=== PATIENT | female | born 2000 | race Caucasian/White ===

== ENCOUNTER 2024-02-03 12:26 | Emergency (ER) | payer BC, OTHER ==
--- OUTSIDE RECORDS SUMMARY | 2024-02-03 12:35 | XMS REPORT | Continuity of Care Document ---
Author Name Unknown Address [address] [facility] [address] [place] [address] [facility] Address [address] [facility] [address] [place] [address] Care Team Providers Care Recruitment Director Name Role Phone Gabby Alamo Primary Care Physician [phone] CASSIE PEGUERO Attending Clinician UnavailGabby Montalvo Attending Clinician [phone], [facility] Attending Clinician Unavailable Malik Bowens NP Attending Clinician [phone] MALIK BOWENS Attending Clinician UnavailMALIK Lucas Attending Clinician Unavailab Ashley Jones Attending Clinician [phone] CRISTOPHER ROSE Attending Clinician Unavailable Cristopher Putnam Attending Clinician [phone] Unknown, Attending Attending Clinician UnavailCassie Martinez MD Attending Clinician [phone] AUGUSTO PHILIPPE Attending Clinician UnavailAUGUSTO Barahona Attending Clinician UnavailMACKENZIE Holt Attending Clinician UnavailMACKENZIE Holt Attending Clinician Unavailabl e NEDA DELAROSA Attending Clinician Unavailable Ebrahim [employer] PROJECT MANAGER, Neda Attending Clinician + Doctor Unassigned, [place] Attending Clinician U navailable GABBY KISER Attending Clinician Unavailable [facility] Attending Clinician UnavailMason Chavez MD Attending Clinician [phone] MASON FITCH Attending Clinician Unavaila MASON Lester Attending Clinician Unavaila ASHLEY Stewart Attending Clinician Unavailable Nurse, Ang Roberth Attending Clinician Unavailable Lab, Ang - Db Attending Clinician Unavailable Nurse, Dieudonne Lepe Attending Clinician Unavailable Gabby Alamo Attending Clinician [phone] Doctor Unassigned, [place] Attending Clinician U navailable Lab, Ang - Db Attending Clinician Unavailable Ashley Salcedo Attending Clinician [phone] CHETAN FLORENCE Attending Clinician Unavailable SERGIO HARPER Attending Clinician Nicolle vailable Vaccine, Ang Db Cbc Fam Attending Clinician Unav ailable Unknown, Attending Attending Clinician Unavailab odin Oh MA, Mechelle A Attending Clinician Unavailab Hina Sanchez Attending Clinician + [phone] HINA NORTON Attending Clinician Unavailable PAZ TORRES Attending Clinician Unavailable PAZ TORRES Attending Clinician Unavailable Chastity Toure PA-C Attending Clinician +-[phone] CHASTITY TOURE Attending Clinician Unavailable JAYJAY KEITA Attending Clinician Unavailable Jayjay Keita DO Attending Clinician [phone] Maria Mcadams MD Attending Clinician [phone] VALENTE TATE Attending Clinician Unavailable KRISTA SHEETS Attending Clinician Unavailable Krista Sheets MD Attending Clinician [phone] Neda Jeong Attending Clinician + [phone] MARIA LUNA III Attending Clinician Unavailmelissa Luna III, MD, James C Attending Clinician + Valente Tate MD Attending Clinician [phone] Jose Padilla Attending Clinician [phone] Ira Bernstein Attending Clinician [phone] Teresa Enriquez MD Attending Clinician [phone] HINA NORTON Admitting Clinician Unavailable Payers Payer Name Policy Type Policy Number Effective Date Expirati on Date Source GRACIA O [id number] 2017 00:00:00 Problems Condition Name Condition Details Condition Category Status Onset Date Resolution Date Last Treatment Date Treating Clinician Comments Source OMAR (obstructi ve sleep apnea) OMAR (obstructi ve sleep apnea) Disease Active 9-05 00:00: 00 [facility] COVID COVID Disease Active 7-17 00:00: 00 [facility] UTI symptoms UTI symptoms Disease Active 5-17 00:00: 00 [facility] Hematuria, unspecifie d type Hematuria, unspecifie d type Disease Active 5-17 00:00: 00 [facility] Spotting between menses Spotting between menses Disease Active 5-17 00:00: 00 [facility] Lower abdominal pain Lower abdominal pain Disease Active 5-17 00:00: 00 [facility] Wellness examinatio n Wellness examinatio n Disease Active -11 00:00: 00 [facility] Chronic migraine with aura without status migrainosu s, not intractabl e Chronic migraine with aura without status migrainosu s, not intractabl e Disease Active -11 00:00: 00 [facility] Indigestio n Indigestio n Disease Active 3-11 00:00: 00 [facility] Upper respirator y tract infection, unspecifie d type Upper respirator y tract infection, unspecifie d type Disease Active 2022-02 0-18 00:00: 00 [facility] Nail abnormalit y Nail abnormalit y Disease Active 9-11 00:00: 00 [facility] Need for vaccinatio n Need for vaccinatio n Disease Active 2021-02 00:00: 00 [facility] Anxiety and depression Anxiety and depression Disease Active 07-10 00:00: 00 [facility] Mood disorder Mood disorder Disease Active 07-10 00:00: 00 [facility] New daily persistent headache New daily persistent headache Disease Active 07-10 00:00: 00 [facility] Elevated platelet count Elevated platelet count Disease Active 04-06 00:00: 00 [facility] Nexplanon in place Nexplanon in place Disease Active 2017-02 00:00: 00 [facility] ADHD (attention deficit hyperactiv ity disorder), combined type ADHD (attention deficit hyperactiv ity disorder), combined type Disease Active 08-05 00:00: 00 [facility] Allergies, Adverse Reactions, Alerts Allergy Name Allergy Type Status Severity Reaction(s) Onset Date Inactive Date Treating Clinician Comments Source NO KNOWN ALLERGIE S Drug Class Active [facility] Social History Social Habit Start Date Stop Date Quantity Comments Source Gender identity [facility] intake 2024-01-19 00:00:00 2024-01-19 00:00:00 Current non-drinker of alcohol (finding) [facility] History of Social function 2023-10-15 00:00:00 2023-10-15 00:00:00 [facility] Alcohol intake 2023-04-28 00:00:00 2023-04-28 00:00:00 Current non-drinker of alcohol (finding) [facility] Exposure to SARS-CoV-2 (event) 2022-06-22 00:00:00 2022-07-02 14:05:00 Not sure [facility] Tobacco use and exposure 2022-01-09 00:00:00 2022-01-09 00:00:00 Smokeless tobacco non-user [facility] Sex assigned at 2002 00:00:00 2000 00:00:00 [facility] Smoking Status Start Date Stop Date Source Never smoked tobacco [facility] Medications Ordered Medication Name Filled Medication Name Start Date Stop Date Current Medication? Ordering Clinician Indication Dosage Frequency Signature (SIG) Comments Components Source LAMOTRIGINE 100 mg [facility] 2023-02 00:00: 00 Yes [id number] 1{tbl} TAKE 1 TABLET BY MOUTH EVERY MORNING [facility] hydrOXYzine 25 mg tablet 2023-02 00:00: 00 Yes [id number] 25mg Take 1 tablet by mouth every 8 (eight) hours as needed for Anxiety or Other (Insomnia) . [facility] aspirin 81 mg chewable tablet 2023-02 00:00: 00 Yes [id number] 81mg Take 1 tablet by mouth in the morning. [facility] escitalopra m oxalate 20 mg tablet 2023-02 00:00: 00 Yes [id number] 20mg Take 1 tablet by mouth in the morning. [facility] LAMOTRIGINE 100 mg [facility] 2023-02 00:00: 00 Yes [id number] 1{tbl} TAKE 1 TABLET BY MOUTH EVERY MORNING [facility] methylPREDN ISolone (MEDROL, KATRINA,) 4 mg tablets 2023-02 0 00:00: 00 01-18 00:00 :00 No [id number] Take by mouth SEE-INSTRU CTIONS. follow package directions [facility] doxycycline monohydrate 100 mg capsule 2023-02 0 00:00: 00 Yes [id number] 100mg Take 1 capsule by mouth in the morning and 1 capsule in the evening. [facility] tretinoin 0.025 % cream 2023-02 0 00:00: 00 Yes [id number] Apply to affected area(s) at bedtime. [facility] clindamycin -benzoyl peroxide (BENZACLIN PUMP) 1-5 % GlwP 2023-02 0- 00:00: 00 Yes [id number] 1{appli cation} Apply 1 Applicatio n to affected area(s) every morning. [facility] Lamotrigine 100 mg [facility] 2023-02 0- 00:00: 12-22 00:00 :00 No [id number] 1{tbl} TAKE 1 TABLET BY MOUTH EVERY MORNING [facility] HYDROXYZINE HCL ORAL 10-14 10:49: 11 Yes Take by mouth. [facility] meloxicam 7.5 mg tablet 10-14 00:00: 00 01-18 00:00 :00 No [id number] 7.5mg Take 1 tablet by mouth once daily as needed (as needed for back pain not relieved by tylenol). [facility] nirmatrelvi r-ritonavir (PAXLOVID) 300 mg (150 mg x 2)-100 mg tablet 09-02 00:00: 00 10-14 00:00 :00 No [id number] 3{tbl} Take 3 tablets by mouth in the morning and 3 tablets in the evening. [facility] bromphenira mine-pseudo ephedrine-D M (BROMFED DM) 2-30-10 mg/5 mL syrup 09-02 00:00: 00 09-13 04:59 :00 No [id number] 10mL Take 10 mL by mouth 4 (four) times daily as needed for Congestion /Allergies for up to 10 days. [facility] tuberculin ppd (TUBERSOL) injection 5 Units 08-21 13:45: 00 08-21 12:55 :27 No [id number] [facility]alate 20 mg tablet 07-15 16:05: 10 Yes 20mg Take 1 tablet by mouth in the morning. [facility] amoxicillin -clavulanat e (AUGMENTIN) 875-125 mg per tablet 07-03 00:00: 00 07-11 04:59 :00 No [id number] 1{tbl} Take 1 tablet by mouth in the morning and 1 tablet in the evening. Do all this for 7 days. [facility] citalopram 20 mg tablet 04-27 00:00: 00 Yes [id number] 20mg Take 1 tablet by mouth in the morning. [facility] TOPIRAMATE 25 mg tablet -12 00:00: 00 Yes [id number] 25mg TAKE 1 TABLET BY MOUTH EVERY DAY IN THE MORNING [facility] famotidine 20 mg tablet 03-07 00:00: 00 Yes [id number] 20mg Take 1 tablet by mouth in the morning. [facility] clindamycin (CLEOCIN T) 1 % lotion 03-07 00:00: 00 Yes [id number] Apply to area(s) 2 (two) times daily. [facility] rizatriptan (MAXALT) 10 mg tablet 03-07 00:00: 00 Yes [id number] 10mg Take 1 tablet by mouth as needed for Migraine. May repeat in 2 hours if needed, do not exceed max daily recommenda tion. [facility] topiramate 25 mg tablet 03-07 00:00: 00 03-31 00:00 :00 No [id number] 25mg Take 1 tablet by mouth in the morning. [facility] albuterol 90 mcg/actuati on inhaler 2022-02 00:00: 00 Yes [id number] 2{puff} Inhale 2 Puffs every 6 (six) hours as needed for Wheezing or Shortness of Breath. [facility] AZITHROMYCI N 250 mg tablet 2022-02 00:00: 00 Yes [id number] 500MG on day 1, then 250mg days 2-5 [facility] bromphenira mine-pseudo ephedrine-D M (BROMFED DM) 2-30-10 mg/5 mL syrup 2022-02 0-18 00:00: 00 12-15 04:59 :00 No [id number] 10mL Take 10 mL by mouth 4 (four) times daily as needed for Congestion /Allergies for up to 10 days. [facility] LAMOTRIGINE 100 mg TR24 9-26 00:00: 00 11-18 00:00 :00 No [id number] 1{tbl} TAKE 1 TABLET BY MOUTH EVERY MORNING [facility] ESCITALOPRA M OXALATE 20 mg tablet 9-26 00:00: 00 04-27 00:00 :00 No [id number] 20mg TAKE 1 TABLET BY MOUTH EVERY DAY IN THE MORNING [facility] cephALEXin (KEFLEX) 500 mg capsule 09-25 00:00: 00 10-03 04:59 :00 No [id number] 500mg Take 1 capsule by mouth in the morning and 1 capsule at noon and 1 capsule in the evening. Do all this for 7 days. [facility] Nitrofurant oin&Nit. Macrocryst 100 mg capsule 09-24 00:00: 00 09-25 00:00 :00 No [id number] 100mg Take 1 capsule by mouth in the morning and 1 capsule in the evening. Do all this for 7 days. [facility] escitalopra m oxalate (LEXAPRO) 20 mg tablet 16 00:00: 00 Yes [id number] 20mg Take 1 tablet by mouth in the morning. [facility] Lamotrigine 100 mg TR24 16 00:00: 00 Yes [id number] 100mg Take 100 mg by mouth in the morning. [facility] ESCITALOPRA M OXALATE 20 mg tablet 12 00:00: 00 07-02 00:00 :00 No [id number] TAKE 1 TABLET BY MOUTH EVERY DAY IN THE MORNING [facility] AZELASTINE 137 mcg (0.1 %) nasal spray 04-12 00:00: 00 12-04 00:00 :00 No [id number] USE 1 SPRAY IN EACH NOSTRIL IN THE MORNING AND 1 SPRAY IN THE EVENING. [facility] CETIRIZINE 10 mg tablet 04-12 00:00: 00 12-04 00:00 :00 No [id number] TAKE 1 TABLET BY MOUTH EVERY DAY IN THE MORNING [facility] FLUTICASONE PROPIONATE 50 mcg/actuati on nasal spray 04-12 00:00: 00 12-04 00:00 :00 No [id number] SPRAY 1 SPRAY INTO EACH NOSTRIL IN THE MORNING [facility] fluticasone propionate 50 mcg/actuati on nasal spray 03-27 00:00: 00 Yes [id number] SPRAY 1 SPRAY INTO EACH NOSTRIL IN THE MORNING [facility] azelastine 137 mcg (0.1 %) nasal spray 03-27 00:00: 00 Yes [id number] USE 1 SPRAY IN EACH NOSTRIL IN THE MORNING AND 1 SPRAY IN THE EVENING. [facility] CETIRIZINE 10 mg tablet 03-27 00:00: 00 Yes [id number] TAKE 1 TABLET BY MOUTH EVERY DAY IN THE MORNING [facility] triamcinolo ne acetonide (KENALOG) injection 40 mg 02-28 02:30: 00 02-28 01:25 :00 No [id number] 40mg [facility] diphenhydrA MINE (BENADRYL) 12.5 mg/5 mL solution 25 mg 02-28 02:15: 00 02-28 01:22 :00 No [id number] 25mg [facility] methylpheni date HCl (CONCERTA ORAL) 02-27 19:16: 29 02-27 00:00 :00 No Take by mouth. [facility] AZELASTINE 137 mcg (0.1 %) nasal spray 02-27 00:00: 00 03-27 00:00 :00 No [id number] USE 1 SPRAY IN EACH NOSTRIL IN THE MORNING AND 1 SPRAY IN THE EVENING. [facility] FLUTICASONE PROPIONATE 50 mcg/actuati on nasal spray 02-27 00:00: 00 03-27 00:00 :00 No [id number] SPRAY 1 SPRAY INTO EACH NOSTRIL IN THE MORNING [facility] CETIRIZINE 10 mg tablet 02-27 00:00: 00 03-27 00:00 :00 No [id number] TAKE 1 TABLET BY MOUTH EVERY DAY IN THE MORNING [facility] azelastine 137 mcg (0.1 %) nasal spray 2021-02 00:00: 00 Yes [id number] 1{spray } Use 1 Donnelly in each nostril in the morning and 1 Donnelly in the evening. Use in each nostril as directed [facility] fluticasone propionate 50 mcg/actuati on nasal spray 2021-02 00:00: 00 Yes [id number] 1{spray } Use 1 Donnelly in each nostril in the morning. [facility] cetirizine (ZYRTEC) 10 mg tablet 2021-02 00:00: 00 Yes [id number] 10mg Take 1 tablet by mouth in the morning. [facility] LAMOTRIGINE 25 mg tablet 2021-02 00:00: 00 07-02 00:00 :00 No [id number] 25MG DAILY FOR 2 WEEKS, THEN 50MG DAILY [facility] traZODone 50 mg tablet 2021-02 00:00: 00 07-02 00:00 :00 No TAKE 1/2 TO 1 TABLET BY MOUTH AT BEDTIME [facility] fluconazole (DIFLUCAN) 150 mg tablet 2021-02 00:00: 00 01-20 05:59 :00 No [id number] 150mg Take 1 tablet by mouth once now for 1 dose. [facility] phenazopyri dine (PYRIDIUM) 200 mg tablet 2021-02 00:00: 00 12-04 00:00 :00 No [id number] 200mg Take 1 tablet by mouth in the morning and 1 tablet at noon and 1 tablet in the evening. Take after meals. [facility] nitrofurant oin 100 mg capsule 2021-02 00:00: 00 02-27 00:00 :00 No [id number] 100mg Take 1 capsule by mouth in the morning and 1 capsule in the evening. [facility] lamoTRIgine (LAMICTAL) 25 mg tablet 2021-02 00:00: 00 02-01 00:00 :00 No [id number] 25mg daily for 2 weeks, then 50mg daily [facility] escitalopra m oxalate 20 mg tablet 2021-02 0-03 00:00: 00 06-28 00:00 :00 No [id number] 20mg Take 1 tablet by mouth in the morning. [facility] ESCITALOPRA M OXALATE 20 mg tablet 8- 00:00: 00 Yes [id number] TAKE 1 TABLET BY MOUTH EVERY DAY [facility] escitalopra m oxalate (LEXAPRO) 20 mg tablet 07-10 00:00: 00 10-09 04:59 :00 No [id number] 20mg Take 1 tablet by mouth daily for 90 days. [facility] busPIRone 10 mg tablet 07-10 00:00: 00 08-10 04:59 :00 No [id number] 10mg Take 1 tablet by mouth 2 (two) times daily as needed (anxiety) for up to 30 days. [facility] methylpheni date HCl (CONCERTA ORAL) - 09:31: 33 Yes Take by mouth. [facility] escitalopra m oxalate (LEXAPRO) 20 mg tablet 1-13 00:00: 00 07-10 00:00 :00 No [id number] 20mg Take 1 tablet by mouth daily. [facility] hydrOXYzine 25 mg tablet 1-05 00:00: 00 07-10 00:00 :00 No [facility] Immunizations Ordered Immunization Name Filled Immunization Name Date Status Comments Source HEP B, Adult Dosage 2023-10-15 00:00:00 Completed HEP B, Adult Dosage 2023-10-15 00:00:00 Completed HEP B, Adult Dosage 2023-10-15 00:00:00 Completed PPD (TB) 2023-09-15 00:00:00 Completed HEP B, Adult Dosage 2023-09-15 00:00:00 Completed PPD (TB) 2023-09-15 00:00:00 Completed HEP B, Adult Dosage 2023-09-15 00:00:00 Completed PPD (TB) 2023-09-15 00:00:00 Completed HEP B, Adult Dosage 2023-09-15 00:00:00 Completed PPD (TB) 2023-08-22 00:00:00 Completed PPD (TB) 2023-08-22 00:00:00 Completed PPD (TB) 2023-08-22 00:00:00 Completed SARS-COV-2 COVID 19 JUAN LUIS SUCROSE VACCINE 12+, , 0.3 ML (30 MCG), IM PFIZER (TENORIO TOP) 2023-07-04 00:00:00 Completed [facility] SARS-COV-2 COVID 19 JUAN LUIS SUCROSE VACCINE 12+, , 0.3 ML (30 MCG), IM PFIZER (TENORIO TOP) 2023-07-04 00:00:00 Completed [facility] SARS-COV-2 COVID 19 JUAN LUIS SUCROSE VACCINE 12+, [id number], 0.3 ML (30 MCG), IM PFIZER (TENORIO TOP) 2023-07-04 00:00:00 Completed [facility] Influenza Virus Vaccine Quad IM, Preserv and ABX Free 6 MO-64 YRS (FLUCELVAX) 2023-04-28 00:00:00 Completed [facility] Influenza Virus Vaccine Quad IM, Preserv and ABX Free 6 MO-64 YRS (FLUCELVAX) 2023-04-28 00:00:00 Completed [facility] Influenza Virus Vaccine Quad IM, Preserv and ABX Free 6 MO-64 YRS (FLUCELVAX) 2023-04-28 00:00:00 Completed [facility] TDAP 2022-06-19 00:00:00 Completed TDAP 2022-06-19 00:00:00 Completed TDAP 2022-06-19 00:00:00 Completed Influenza Virus Vaccine Quad IM, Preserv and ABX Free 6 MO-64 YRS (FLUCELVAX) 2022-01-09 00:00:00 Completed [facility] Influenza Virus Vaccine Quad IM, Preserv and ABX Free 6 MO-64 YRS (FLUCELVAX) 2022-01-09 00:00:00 Completed [facility] Influenza Virus Vaccine Quad IM, Preserv and ABX Free 6 MO-64 YRS (FLUCELVAX) 2022-01-09 00:00:00 Completed [facility] Influenza Virus Vaccine Quad IM, Preserv and ABX Free 6 MO-64 YRS (FLUCELVAX) 2022-01-09 00:00:00 Completed [facility] Influenza Virus Vaccine Quad IM, Preserv and ABX Free 6 MO-64 YRS 2022-01-09 00:00:00 Completed [facility] Influenza Virus Vaccine Quad IM, Preserv and ABX Free 6 MO-64 YRS 2022-01-09 00:00:00 Completed [facility] Influenza Virus Vaccine Quad IM, Preserv and ABX Free 6 MO-64 YRS 2022-01-09 00:00:00 Completed [facility] Influenza Virus Vaccine Quad IM, Preserv and ABX Free 6 MO-64 YRS 2022-01-09 00:00:00 Completed [facility] Influenza Virus Vaccine Quad IM, Preserv and ABX Free 6 MO-64 YRS 2022-01-09 00:00:00 Completed [facility] Influenza Virus Vaccine Quad IM, Preserv and ABX Free 6 MO-64 YRS 2022-01-09 00:00:00 Completed [facility] Influenza Virus Vaccine Quad IM, Preserv and ABX Free 6 MO-64 YRS 2022-01-09 00:00:00 Completed [facility] Influenza Virus Vaccine Quad IM, Preserv and ABX Free 6 MO-64 YRS 2022-01-09 00:00:00 Completed [facility] Influenza Virus Vaccine Quad IM, Preserv and ABX Free 6 MO-64 YRS 2022-01-09 00:00:00 Completed [facility] Influenza Virus Vaccine Quad IM, Preserv and ABX Free 6 MO-64 YRS 2022-01-09 00:00:00 Completed [facility] Influenza Virus Vaccine Quad IM, Preserv and ABX Free 6 MO-64 YRS 2022-01-09 00:00:00 Completed [facility] Influenza Virus Vaccine Quad IM, Preserv and ABX Free 6 MO-64 YRS 2022-01-09 00:00:00 Completed [facility] Influenza Virus Vaccine Quad IM, Preserv and ABX Free 6 MO-64 YRS 2022-01-09 00:00:00 Completed [facility] Influenza Virus Vaccine Quad IM, Preserv and ABX Free 6 MO-64 YRS 2022-01-09 00:00:00 Completed [facility] Influenza Virus Vaccine Quad IM, Preserv and ABX Free 6 MO-64 YRS 2022-01-09 00:00:00 Completed [facility] Influenza Virus Vaccine Quad IM, Preserv and ABX Free 6 MO-64 YRS 2022-01-09 00:00:00 Completed [facility] Influenza Virus Vaccine Quad IM, Preserv and ABX Free 6 MO-64 YRS 2022-01-09 00:00:00 Completed [facility] Influenza Virus Vaccine Quad IM, Preserv and ABX Free 6 MO-64 YRS 2022-01-09 00:00:00 Completed [facility] Influenza Virus Vaccine Quad IM, Preserv and ABX Free 6 MO-64 YRS 2022-01-09 00:00:00 Completed [facility] Influenza Virus Vaccine Quad IM, Preserv and ABX Free 6 MO-64 YRS 2022-01-09 00:00:00 Completed [facility] Influenza Virus Vaccine Quad IM, Preserv and ABX Free 6 MO-64 YRS 2022-01-09 00:00:00 Completed [facility] Influenza Virus Vaccine Quad IM, Preserv and ABX Free 6 MO-64 YRS 2022-01-09 00:00:00 Completed [facility] Influenza Virus Vaccine Quad IM, Preserv and ABX Free 6 MO-64 YRS (FLUCELVAX) 2022-01-09 00:00:00 Completed [facility] Meningococcal B, OMV 2021-08-23 00:00:00 Completed [facility] Meningococcal B, OMV 2021-08-23 00:00:00 Completed [facility] Meningococcal B, OMV 2021-08-23 00:00:00 Completed Meningococcal B, OMV 2021-08-23 00:00:00 Completed Meningococcal B, OMV 2021-08-23 00:00:00 Completed Meningococcal B, OMV 2021-08-23 00:00:00 Completed [facility] Meningococcal B, OMV 2021-08-23 00:00:00 Completed [facility] Meningococcal B, OMV 2021-08-23 00:00:00 Completed [facility] Meningococcal B, OMV 2021-08-23 00:00:00 Completed [facility] Meningococcal B, OMV 2021-08-23 00:00:00 Completed [facility] Meningococcal B, OMV 2021-08-23 00:00:00 Completed [facility] Meningococcal B, OMV 2021-08-23 00:00:00 Completed [facility] Meningococcal B, OMV 2021-08-23 00:00:00 Completed [facility] Meningococcal B, OMV 2021-08-23 00:00:00 Completed [facility] Meningococcal B, OMV 2021-08-23 00:00:00 Completed [facility] Meningococcal B, OMV 2021-08-23 00:00:00 Completed [facility] Meningococcal B, OMV 2021-08-23 00:00:00 Completed [facility] Meningococcal B, OMV 2021-08-23 00:00:00 Completed [facility] Meningococcal Polysaccharide (groups A, C, Y and W-135) conjugate vaccine (MCV4P) 2020-06-27 00:00:00 Completed [facility] Meningococcal B, OMV 2020-06-27 00:00:00 Completed [facility] Meningococcal Polysaccharide (groups A, C, Y and W-135) conjugate vaccine (MCV4P) 2020-06-27 00:00:00 Completed Meningococcal B, OMV 2020-06-27 00:00:00 Completed Meningococcal Polysaccharide (groups A, C, Y and W-135) conjugate vaccine (MCV4P) 2020-06-27 00:00:00 Completed Meningococcal B, OMV 2020-06-27 00:00:00 Completed Meningococcal Polysaccharide (groups A, C, Y and W-135) conjugate vaccine (MCV4P) 2020-06-27 00:00:00 Completed Meningococcal B, OMV 2020-06-27 00:00:00 Completed Meningococcal Polysaccharide (groups A, C, Y and W-135) conjugate vaccine (MCV4P) 2020-06-27 00:00:00 Completed [facility] Meningococcal B, V 2020-06-27 00:00:00 Completed [facility] Meningococcal Polysaccharide (groups A, C, Y and W-135) conjugate vaccine (MCV4P) 2020-06-27 00:00:00 Completed [facility] Meningococcal B, OMV 2020-06-27 00:00:00 Completed [facility] [facility] M[facility] Polysaccharide (groups A, C, Y and W-135) conjugate vaccine (MCV4P) 2020-06-27 00:00:00 Completed [facility] Meningococcal B, OMV 2020-06-27 00:00:00 Completed [facility] Meningococcal Polysaccharide (groups A, C, Y and W-135) conjugate vaccine (MCV4P) 2020-06-27 00:00:00 Completed [facility] Meningococcal B, OMV 2020-06-27 00:00:00 Completed [facility] Meningococcal Polysaccharide (groups A, C, Y and W-135) conjugate vaccine (MCV4P) 2020-06-27 00:00:00 Completed [facility] Meningococcal B, OMV 2020-06-27 00:00:00 Completed [facility] Meningococcal Polysaccharide (groups A, C, Y and W-135) conjugate vaccine (MCV4P) 2020-06-27 00:00:00 Completed [facility] Meningococcal B, OMV 2020-06-27 00:00:00 Completed [facility] Meningococcal Polysaccharide (groups A, C, Y and W-135) conjugate vaccine (MCV4P) 2020-06-27 00:00:00 Completed [facility] Meningococcal B, OMV 2020-06-27 00:00:00 Completed [facility] Meningococcal Polysaccharide (groups A, C, Y and W-135) conjugate vaccine (MCV4P) 2020-06-27 00:00:00 Completed [facility] Meningococcal B, OMV 2020-06-27 00:00:00 Completed [facility] Meningococcal Polysaccharide (groups A, C, Y and W-135) conjugate vaccine (MCV4P) 2020-06-27 00:00:00 Completed [facility] Meningococcal B, OMV 2020-06-27 00:00:00 Completed [facility] Meningococcal Polysaccharide (groups A, C, Y and W-135) conjugate vaccine (MCV4P) 2020-06-27 00:00:00 Completed [facility] Meningococcal B, OMV 2020-06-27 00:00:00 Completed [facility] Meningococcal Polysaccharide (groups A, C, Y and W-135) conjugate vaccine (MCV4P) 2020-06-27 00:00:00 Completed [facility] Meningococcal B, OMV 2020-06-27 00:00:00 Completed [facility] Meningococcal Polysaccharide (groups A, C, Y and W-135) conjugate vaccine (MCV4P) 2020-06-27 00:00:00 Completed [facility] Meningococcal B, OMV 2020-06-27 00:00:00 Completed [facility] Meningococcal Polysaccharide (groups A, C, Y and W-135) conjugate vaccine (MCV4P) 2020-06-27 00:00:00 Completed [facility] Meningococcal B, OMV 2020-06-27 00:00:00 Completed [facility] Meningococcal Polysaccharide (groups A, C, Y and W-135) conjugate vaccine (MCV4P) 2020-06-27 00:00:00 Completed [facility] Meningococcal B, OMV 2020-06-27 00:00:00 Completed [facility] HPV9 2016-07-26 00:00:00 Completed [facility] HPV9 2016-07-26 00:00:00 Completed HPV9 2016-07-26 00:00:00 Completed HPV9 2016-07-26 00:00:00 Completed HPV9 2016-07-26 00:00:00 Completed [facility] HPV9 2016-07-26 00:00:00 Completed [facility] HPV9 2016-07-26 00:00:00 Completed [facility] HPV9 2016-07-26 00:00:00 Completed [facility] HPV9 2016-07-26 00:00:00 Completed [facility] HPV9 2016-07-26 00:00:00 Completed [facility] HPV9 2016-07-26 00:00:00 Completed [facility] HPV9 2016-07-26 00:00:00 Completed [facility] HPV9 2016-07-26 00:00:00 Completed [facility] HPV9 2016-07-26 00:00:00 Completed [facility] HPV9 2016-07-26 00:00:00 Completed [facility] HPV9 2016-07-26 00:00:00 Completed [facility] HPV9 2016-07-26 00:00:00 Completed [facility] HPV9 2016-07-26 00:00:00 Completed [facility] TDAP 2014-07-04 00:00:00 Completed [facility] HPV 2014-07-04 00:00:00 Completed [facility] Meningococcal Polysaccharide (groups A, C, Y and W-135) conjugate vaccine (MCV4P) 2014-07-04 00:00:00 Completed [facility] HPV 2014-07-04 00:00:00 Completed Meningococcal Polysaccharide (groups A, C, Y and W-135) conjugate vaccine (MCV4P) 2014-07-04 00:00:00 Completed TDAP 2014-07-04 00:00:00 Completed HPV 2014-07-04 00:00:00 Completed Meningococcal Polysaccharide (groups A, C, Y and W-135) conjugate vaccine (MCV4P) 2014-07-04 00:00:00 Completed TDAP 2014-07-04 00:00:00 Completed HPV 2014-07-04 00:00:00 Completed Meningococcal Polysaccharide (groups A, C, Y and W-135) conjugate vaccine (MCV4P) 2014-07-04 00:00:00 Completed TDAP 2014-07-04 00:00:00 Completed HPV 2014-07-04 00:00:00 Completed [facility] Meningococcal Polysaccharide (groups A, C, Y and W-135) conjugate vaccine (MCV4P) 2014-07-04 00:00:00 Completed [facility] TDAP 2014-07-04 00:00:00 Completed [facility] HPV 2014-07-04 00:00:00 Completed [facility] Meningococcal Polysaccharide (groups A, C, Y and W-135) conjugate vaccine (MCV4P) 2014-07-04 00:00:00 Completed [facility] TDAP 2014-07-04 00:00:00 Completed [facility] HPV 2014-07-04 00:00:00 Completed [facility] Meningococcal Polysaccharide (groups A, C, Y and W-135) conjugate vaccine (MCV4P) 2014-07-04 00:00:00 Completed [facility] TDAP 2014-07-04 00:00:00 Completed [facility] HPV 2014-07-04 00:00:00 Completed [facility] Meningococcal Polysaccharide (groups A, C, Y and W-135) conjugate vaccine (MCV4P) 2014-07-04 00:00:00 Completed [facility] TDAP 2014-07-04 00:00:00 Completed [facility] HPV 2014-07-04 00:00:00 Completed [facility] Meningococcal Polysaccharide (groups A, C, Y and W-135) conjugate vaccine (MCV4P) 2014-07-04 00:00:00 Completed [facility] TDAP 2014-07-04 00:00:00 Completed [facility] HPV 2014-07-04 00:00:00 Completed [facility] Meningococcal Polysaccharide (groups A, C, Y and W-135) conjugate vaccine (MCV4P) 2014-07-04 00:00:00 Completed [facility] TDAP 2014-07-04 00:00:00 Completed [facility] HPV 2014-07-04 00:00:00 Completed [facility] Meningococcal Polysaccharide (groups A, C, Y and W-135) conjugate vaccine (MCV4P) 2014-07-04 00:00:00 Completed [facility] TDAP 2014-07-04 00:00:00 Completed [facility] HPV 2014-07-04 00:00:00 Completed [facility] Meningococcal Polysaccharide (groups A, C, Y and W-135) conjugate vaccine (MCV4P) 2014-07-04 00:00:00 Completed [facility] TDAP 2014-07-04 00:00:00 Completed [facility] HPV 2014-07-04 00:00:00 Completed [facility] Meningococcal Polysaccharide (groups A, C, Y and W-135) conjugate vaccine (MCV4P) 2014-07-04 00:00:00 Completed [facility] TDAP 2014-07-04 00:00:00 Completed [facility] HPV 2014-07-04 00:00:00 Completed [facility] Meningococcal Polysaccharide (groups A, C, Y and W-135) conjugate vaccine (MCV4P) 2014-07-04 00:00:00 Completed [facility] TDAP 2014-07-04 00:00:00 Completed [facility] HPV 2014-07-04 00:00:00 Completed [facility] Meningococcal Polysaccharide (groups A, C, Y and W-135) conjugate vaccine (MCV4P) 2014-07-04 00:00:00 Completed [facility] TDAP 2014-07-04 00:00:00 Completed [facility] HPV 2014-07-04 00:00:00 Completed [facility] Meningococcal Polysaccharide (groups A, C, Y and W-135) conjugate vaccine (MCV4P) 2014-07-04 00:00:00 Completed [facility] TDAP 2014-07-04 00:00:00 Completed [facility] HPV 2014-07-04 00:00:00 Completed [facility] Meningococcal Polysaccharide (groups A, C, Y and W-135) conjugate vaccine (MCV4P) 2014-07-04 00:00:00 Completed [facility] TDAP 2014-07-04 00:00:00 Completed [facility] HPV 2014-07-04 00:00:00 Completed [facility] Meningococcal Polysaccharide (groups A, C, Y and W-135) conjugate vaccine (MCV4P) 2014-07-04 00:00:00 Completed [facility] TDAP 2014-07-04 00:00:00 Completed [facility] Influenza Virus Vaccine Quad .5 mL IM 6+ MO (FLUZONE/FLULAVAL/FL UARIX) 2014-01-27 00:00:00 Completed [facility] Influenza Virus Vaccine Quad .5 mL IM 6+ MO (FLUZONE/FLULAVAL/FL UARIX) 2014-01-27 00:00:00 Completed Influenza Virus Vaccine Quad .5 mL IM 6+ MO (FLUZONE/FLULAVAL/FL UARIX) 2014-01-27 00:00:00 Completed Influenza Virus Vaccine Quad .5 mL IM 6+ MO (FLUZONE/FLULAVAL/FL UARIX) 2014-01-27 00:00:00 Completed Influenza Virus Vaccine Quad .5 mL IM 6+ MO 2014-01-27 00:00:00 Completed [facility] Influenza Virus Vaccine Quad .5 mL IM 6+ MO 2014-01-27 00:00:00 Completed [facility] Influenza Virus Vaccine Quad .5 mL IM 6+ MO 2014-01-27 00:00:00 Completed [facility] Influenza Virus Vaccine Quad .5 mL IM 6+ MO 2014-01-27 00:00:00 Completed [facility] Influenza Virus Vaccine Quad .5 mL IM 6+ MO 2014-01-27 00:00:00 Completed [facility] Influenza Virus Vaccine Quad .5 mL IM 6+ MO 2014-01-27 00:00:00 Completed [facility] Influenza Virus Vaccine Quad .5 mL IM 6+ MO 2014-01-27 00:00:00 Completed [facility] Influenza Virus Vaccine Quad .5 mL IM 6+ MO 2014-01-27 00:00:00 Completed [facility] Influenza Virus Vaccine Quad .5 mL IM 6+ MO 2014-01-27 00:00:00 Completed [facility] Influenza Virus Vaccine Quad .5 mL IM 6+ MO 2014-01-27 00:00:00 Completed [facility] Influenza Virus Vaccine Quad .5 mL IM 6+ MO 2014-01-27 00:00:00 Completed [facility] Influenza Virus Vaccine Quad .5 mL IM 6+ MO 2014-01-27 00:00:00 Completed [facility] Influenza Virus Vaccine Quad .5 mL IM 6+ MO 2014-01-27 00:00:00 Completed [facility] Influenza Virus Vaccine Quad .5 mL IM 6+ MO (FLUZONE/FLULAVAL/FL UARIX) 2014-01-27 00:00:00 Completed [facility] Varicella (varivax)(chicken pox) 2007-06-17 00:00:00 Completed [facility] DTaP, Unspecified Formulation 2007-06-17 00:00:00 Completed [facility] MMR 2007-06-17 00:00:00 Completed [facility] IPV 2007-06-17 00:00:00 Completed [facility] DTaP, Unspecified Formulation 2007-06-17 00:00:00 Completed MMR 2007-06-17 00:00:00 Completed IPV 2007-06-17 00:00:00 Completed Varicella (varivax)(chicken pox) 2007-06-17 00:00:00 Completed DTaP, Unspecified Formulation 2007-06-17 00:00:00 Completed MMR 2007-06-17 00:00:00 Completed IPV 2007-06-17 00:00:00 Completed Varicella (varivax)(chicken pox) 2007-06-17 00:00:00 Completed DTaP, Unspecified Formulation 2007-06-17 00:00:00 Completed MMR 2007-06-17 00:00:00 Completed IPV 2007-06-17 00:00:00 Completed Varicella (varivax)(chicken pox) 2007-06-17 00:00:00 Completed DTaP, Unspecified Formulation 2007-06-17 00:00:00 Completed [facility] MMR 2007-06-17 00:00:00 Completed [facility] IPV 2007-06-17 00:00:00 Completed [facility] Varicella (varivax)(chicken pox) 2007-06-17 00:00:00 Completed [facility] DTaP, Unspecified Formulation 2007-06-17 00:00:00 Completed [facility] MMR 2007-06-17 00:00:00 Completed [facility] IPV 2007-06-17 00:00:00 Completed [facility] Varicella (varivax)(chicken pox) 2007-06-17 00:00:00 Completed [facility] DTaP, Unspecified Formulation 2007-06-17 00:00:00 Completed [facility] MMR 2007-06-17 00:00:00 Completed [facility] IPV 2007-06-17 00:00:00 Completed [facility] Varicella (varivax)(chicken pox) 2007-06-17 00:00:00 Completed [facility] DTaP, Unspecified Formulation 2007-06-17 00:00:00 Completed [facility] MMR 2007-06-17 00:00:00 Completed [facility] IPV 2007-06-17 00:00:00 Completed [facility] Varicella (varivax)(chicken pox) 2007-06-17 00:00:00 Completed [facility] DTaP, Unspecified Formulation 2007-06-17 00:00:00 Completed [facility] MMR 2007-06-17 00:00:00 Completed [facility] IPV 2007-06-17 00:00:00 Completed [facility] Varicella (varivax)(chicken pox) 2007-06-17 00:00:00 Completed [facility] DTaP, Unspecified Formulation 2007-06-17 00:00:00 Completed [facility] MMR 2007-06-17 00:00:00 Completed [facility] IPV 2007-06-17 00:00:00 Completed [facility] Varicella (varivax)(chicken pox) 2007-06-17 00:00:00 Completed [facility] DTaP, Unspecified Formulation 2007-06-17 00:00:00 Completed [facility] MMR 2007-06-17 00:00:00 Completed [facility] IPV 2007-06-17 00:00:00 Completed [facility] Varicella (varivax)(chicken pox) 2007-06-17 00:00:00 Completed [facility] DTaP, Unspecified Formulation 2007-06-17 00:00:00 Completed [facility] MMR 2007-06-17 00:00:00 Completed [facility] IPV 2007-06-17 00:00:00 Completed [facility] Varicella (varivax)(chicken pox) 2007-06-17 00:00:00 Completed [facility] DTaP, Unspecified Formulation 2007-06-17 00:00:00 Completed [facility] MMR 2007-06-17 00:00:00 Completed [facility] IPV 2007-06-17 00:00:00 Completed [facility] Varicella (varivax)(chicken pox) 2007-06-17 00:00:00 Completed [facility] DTaP, Unspecified Formulation 2007-06-17 00:00:00 Completed [facility] MMR 2007-06-17 00:00:00 Completed [facility] IPV 2007-06-17 00:00:00 Completed [facility] Varicella (varivax)(chicken pox) 2007-06-17 00:00:00 Completed [facility] DTaP, Unspecified Formulation 2007-06-17 00:00:00 Completed [facility] MMR 2007-06-17 00:00:00 Completed [facility] IPV 2007-06-17 00:00:00 Completed [facility] Varicella (varivax)(chicken pox) 2007-06-17 00:00:00 Completed [facility] DTaP, Unspecified Formulation 2007-06-17 00:00:00 Completed [facility] MMR 2007-06-17 00:00:00 Completed [facility] IPV 2007-06-17 00:00:00 Completed [facility] Varicella (varivax)(chicken pox) 2007-06-17 00:00:00 Completed [facility] DTaP, Unspecified Formulation 2007-06-17 00:00:00 Completed [facility] MMR 2007-06-17 00:00:00 Completed [facility] IPV 2007-06-17 00:00:00 Completed [facility] Varicella (varivax)(chicken pox) 2007-06-17 00:00:00 Completed [facility] DTaP, Unspecified Formulation 2007-06-17 00:00:00 Completed [facility] MMR 2007-06-17 00:00:00 Completed [facility] IPV 2007-06-17 00:00:00 Completed [facility] Varicella (varivax)(chicken pox) 2007-06-17 00:00:00 Completed [facility] Varicella (varivax)(chicken pox) 2003-11-29 00:00:00 Completed Varicella (varivax)(chicken pox) 2003-11-29 00:00:00 Completed Varicella (varivax)(chicken pox) 2003-11-29 00:00:00 Completed Hep B, Adol or Pedi Dosage 2002 00:00:00 Completed [facility] Hep B, Adol or Pedi Dosage 2002 00:00:00 Completed Hep B, Adol or Pedi Dosage 2002 00:00:00 Completed Hep B, Adol or Pedi Dosage 2002 00:00:00 Completed Hep B, Adol or Pedi Dosage 2002 00:00:00 Completed [facility] Hep B, Adol or Pedi Dosage 2002 00:00:00 Completed [facility] Hep B, Adol or Pedi Dosage 2002 00:00:00 Completed [facility] Hep B, Adol or Pedi Dosage 2002 00:00:00 Completed [facility] Hep B, Adol or Pedi Dosage 2002 00:00:00 Completed [facility] Hep B, Adol or Pedi Dosage 2002 00:00:00 Completed [facility] Hep B, Adol or Pedi Dosage 2002 00:00:00 Completed [facility] Hep B, Adol or Pedi Dosage 2002 00:00:00 Completed [facility] Hep B, Adol or Pedi Dosage 2002 00:00:00 Completed [facility] Hep B, Adol or Pedi Dosage 2002 00:00:00 Completed [facility] Hep B, Adol or Pedi Dosage 2002 00:00:00 Completed [facility] Hep B, Adol or Pedi Dosage 2002 00:00:00 Completed [facility] Hep B, Adol or Pedi Dosage 2002 00:00:00 Completed [facility] Hep B, Adol or Pedi Dosage 2002 00:00:00 Completed [facility] Influenza Virus Vaccine Quad IM, Preserv and ABX Free 6 MO-64 YRS (FLUCELVAX) Unknown Completed [facility] DTaP, Unspecified Formulation Unknown Completed [facility] Influenza Virus Vaccine Quad .5 mL IM 6+ MO (FLUZONE/FLULAVAL/FL UARIX) Unknown Completed [facility] Hep B, Adol or Pedi Dosage Unknown Completed [facility] HPV Unknown Completed [facility] HPV9 Unknown Completed [facility] Meningococcal Polysaccharide (groups A, C, Y and W-135) conjugate vaccine (MCV4P) Unknown Completed [facility] Meningococcal B, OMV Unknown Completed [facility] MMR Unknown Completed [facility] IPV Unknown Completed [facility] TDAP Unknown Completed [facility] Varicella (varivax)(chicken pox) Unknown Completed [facility] DTaP, Unspecified Formulation Unknown Completed [facility] Influenza Virus Vaccine Quad .5 mL IM 6+ MO (FLUZONE/FLULAVAL/FL UARIX) Unknown Completed [facility] Hep B, Adol or Pedi Dosage Unknown Completed [facility] HPV Unknown Completed [facility] HPV9 Unknown Completed [facility] Meningococcal Polysaccharide (groups A, C, Y and W-135) conjugate vaccine (MCV4P) Unknown Completed [facility] Meningococcal B, OMV Unknown Completed [facility] MMR Unknown Completed [facility] IPV Unknown Completed [facility] TDAP Unknown Completed [facility] Varicella (varivax)(chicken pox) Unknown Completed [facility] Influenza Virus Vaccine Quad IM, Preserv and ABX Free 6 MO-64 YRS (FLUCELVAX) Unknown Completed [facility] DTaP, Unspecified Formulation Unknown Completed [facility] Influenza Virus Vaccine Quad .5 mL IM 6+ MO (FLUZONE/FLULAVAL/FL UARIX) Unknown Completed [facility] Hep B, Adol or Pedi Dosage Unknown Completed [facility] HPV Unknown Completed [facility] HPV9 Unknown Completed [facility] Meningococcal Polysaccharide (groups A, C, Y and W-135) conjugate vaccine (MCV4P) Unknown Completed [facility] Meningococcal B, OMV Unknown Completed [facility] MMR Unknown Completed [facility] IPV Unknown Completed [facility] TDAP Unknown Completed [facility] Varicella (varivax)(chicken pox) Unknown Completed [facility] Influenza Virus Vaccine Quad IM, Preserv and ABX Free 6 MO-64 YRS (FLUCELVAX) Unknown Completed [facility] DTaP, Unspecified Formulation Unknown Completed [facility] Influenza Virus Vaccine Quad .5 mL IM 6+ MO (FLUZONE/FLULAVAL/FL UARIX) Unknown Completed [facility] Hep B, Adol or Pedi Dosage Unknown Completed [facility] HPV Unknown Completed [facility] HPV9 Unknown Completed [facility] Meningococcal Polysaccharide (groups A, C, Y and W-135) conjugate vaccine (MCV4P) Unknown Completed [facility] Meningococcal B, OMV Unknown Completed [facility] MMR Unknown Completed [facility] IPV Unknown Completed [facility] TDAP Unknown Completed [facility] Varicella (varivax)(chicken pox) Unknown Completed [facility] Influenza Virus Vaccine Quad IM, Preserv and ABX Free 6 MO-64 YRS (FLUCELVAX) Unknown Completed [facility] DTaP, Unspecified Formulation Unknown Completed [facility] Influenza Virus Vaccine Quad .5 mL IM 6+ MO (FLUZONE/FLULAVAL/FL UARIX) Unknown Completed [facility] Hep B, Adol or Pedi Dosage Unknown Completed [facility] HPV Unknown Completed [facility] HPV9 Unknown Completed [facility] Meningococcal Polysaccharide (groups A, C, Y and W-135) conjugate vaccine (MCV4P) Unknown Completed [facility] Meningococcal B, OMV Unknown Completed [facility] MMR Unknown Completed [facility] IPV Unknown Completed [facility] TDAP Unknown Completed [facility] Varicella (varivax)(chicken pox) Unknown Completed [facility] Influenza Virus Vaccine Quad IM, Preserv and ABX Free 6 MO-64 YRS (FLUCELVAX) Unknown Completed [facility] DTaP, Unspecified Formulation Unknown Completed [facility] Influenza Virus Vaccine Quad .5 mL IM 6+ MO (FLUZONE/FLULAVAL/FL UARIX) Unknown Completed [facility] Hep B, Adol or Pedi Dosage Unknown Completed [facility] HPV Unknown Completed [facility] HPV9 Unknown Completed [facility] Meningococcal Polysaccharide (groups A, C, Y and W-135) conjugate vaccine (MCV4P) Unknown Completed [facility] Meningococcal B, OMV Unknown Completed [facility] MMR Unknown Completed [facility] IPV Unknown Completed [facility] TDAP Unknown Completed [facility] Varicella (varivax)(chicken pox) Unknown Completed [facility] Influenza Virus Vaccine Quad IM, Preserv and ABX Free 6 MO-64 YRS (FLUCELVAX) Unknown Completed [facility] DTaP, Unspecified Formulation Unknown Completed [facility] Influenza Virus Vaccine Quad .5 mL IM 6+ MO (FLUZONE/FLULAVAL/FL UARIX) Unknown Completed [facility] Hep B, Adol or Pedi Dosage Unknown Completed [facility] HPV Unknown Completed [facility] HPV9 Unknown Completed [facility] Meningococcal Polysaccharide (groups A, C, Y and W-135) conjugate vaccine (MCV4P) Unknown Completed [facility] Meningococcal B, OMV Unknown Completed [facility] MMR Unknown Completed [facility] IPV Unknown Completed [facility] TDAP Unknown Completed [facility] Varicella (varivax)(chicken pox) Unknown Completed [facility] Influenza Virus Vaccine Quad IM, Preserv and ABX Free 6 MO-64 YRS (FLUCELVAX) Unknown Completed [facility] DTaP, Unspecified Formulation Unknown Completed [facility] Influenza Virus Vaccine Quad .5 mL IM 6+ MO (FLUZONE/FLULAVAL/FL UARIX) Unknown Completed [facility] Hep B, Adol or Pedi Dosage Unknown Completed [facility] HPV Unknown Completed [facility] HPV9 Unknown Completed [facility] Meningococcal Polysaccharide (groups A, C, Y and W-135) conjugate vaccine (MCV4P) Unknown Completed [facility] Meningococcal B, OMV Unknown Completed [facility] MMR Unknown Completed [facility] IPV Unknown Completed [facility] TDAP Unknown Completed [facility] Varicella (varivax)(chicken pox) Unknown Completed [facility] Influenza Virus Vaccine Quad IM, Preserv and ABX Free 6 MO-64 YRS (FLUCELVAX) Unknown Completed [facility] DTaP, Unspecified Formulation Unknown Completed [facility] Influenza Virus Vaccine Quad .5 mL IM 6+ MO (FLUZONE/FLULAVAL/FL UARIX) Unknown Completed [facility] Hep B, Adol or Pedi Dosage Unknown Completed [facility] HPV Unknown Completed [facility] HPV9 Unknown Completed [facility] Meningococcal Polysaccharide (groups A, C, Y and W-135) conjugate vaccine (MCV4P) Unknown Completed [facility] Meningococcal B, OMV Unknown Completed [facility] MMR Unknown Completed [facility] IPV Unknown Completed [facility] TDAP Unknown Completed [facility] Varicella (varivax)(chicken pox) Unknown Completed [facility] Influenza Virus Vaccine Quad IM, Preserv and ABX Free 6 MO-64 YRS (FLUCELVAX) Unknown Completed [facility] DTaP, Unspecified Formulation Unknown Completed [facility] Influenza Virus Vaccine Quad .5 mL IM 6+ MO (FLUZONE/FLULAVAL/FL UARIX) Unknown Completed [facility] Hep B, Adol or Pedi Dosage Unknown Completed [facility] HPV Unknown Completed [facility] HPV9 Unknown Completed [facility] Meningococcal Polysaccharide (groups A, C, Y and W-135) conjugate vaccine (MCV4P) Unknown Completed [facility] Meningococcal B, OMV Unknown Completed [facility] MMR Unknown Completed [facility] IPV Unknown Completed [facility] TDAP Unknown Completed [facility] Varicella (varivax)(chicken pox) Unknown Completed [facility] Influenza Virus Vaccine Quad IM, Preserv and ABX Free 6 MO-64 YRS (FLUCELVAX) Unknown Completed [facility] DTaP, Unspecified Formulation Unknown Completed [facility] Influenza Virus Vaccine Quad .5 mL IM 6+ MO (FLUZONE/FLULAVAL/FL UARIX) Unknown Completed [facility] Hep B, Adol or Pedi Dosage Unknown Completed [facility] HPV Unknown Completed [facility] HPV9 Unknown Completed [facility] Meningococcal Polysaccharide (groups A, C, Y and W-135) conjugate vaccine (MCV4P) Unknown Completed [facility] Meningococcal B, OMV Unknown Completed [facility] MMR Unknown Completed [facility] IPV Unknown Completed [facility] TDAP Unknown Completed [facility] Varicella (varivax)(chicken pox) Unknown Completed [facility] Influenza Virus Vaccine Quad IM, Preserv and ABX Free 6 MO-64 YRS (FLUCELVAX) Unknown Completed [facility] DTaP, Unspecified Formulation Unknown Completed [facility] Influenza Virus Vaccine Quad .5 mL IM 6+ MO (FLUZONE/FLULAVAL/FL UARIX) Unknown Completed [facility] Hep B, Adol or Pedi Dosage Unknown Completed [facility] HPV Unknown Completed [facility] HPV9 Unknown Completed [facility] Meningococcal Polysaccharide (groups A, C, Y and W-135) conjugate vaccine (MCV4P) Unknown Completed [facility] Meningococcal B, OMV Unknown Completed [facility] MMR Unknown Completed [facility] IPV Unknown Completed [facility] TDAP Unknown Completed [facility] Varicella (varivax)(chicken pox) Unknown Completed [facility] Influenza Virus Vaccine Quad IM, Preserv and ABX Free 6 MO-64 YRS (FLUCELVAX) Unknown Completed [facility] DTaP, Unspecified Formulation Unknown Completed [facility] Influenza Virus Vaccine Quad .5 mL IM 6+ MO (FLUZONE/FLULAVAL/FL UARIX) Unknown Completed [facility] Hep B, Adol or Pedi Dosage Unknown Completed [facility] HPV Unknown Completed [facility] HPV9 Unknown Completed [facility] Meningococcal Polysaccharide (groups A, C, Y and W-135) conjugate vaccine (MCV4P) Unknown Completed [facility] Meningococcal B, OMV Unknown Completed [facility] MMR Unknown Completed [facility] IPV Unknown Completed [facility] TDAP Unknown Completed [facility] Varicella (varivax)(chicken pox) Unknown Completed [facility] Influenza Virus Vaccine Quad IM, Preserv and ABX Free 6 MO-64 YRS (FLUCELVAX) Unknown Completed [facility] DTaP, Unspecified Formulation Unknown Completed [facility] Influenza Virus Vaccine Quad .5 mL IM 6+ MO (FLUZONE/FLULAVAL/FL UARIX) Unknown Completed [facility] Hep B, Adol or Pedi Dosage Unknown Completed [facility] HPV Unknown Completed [facility] HPV9 Unknown Completed [facility] Meningococcal Polysaccharide (groups A, C, Y and W-135) conjugate vaccine (MCV4P) Unknown Completed [facility] Meningococcal B, OMV Unknown Completed [facility] MMR Unknown Completed [facility] IPV Unknown Completed [facility] TDAP Unknown Completed [facility] Varicella (varivax)(chicken pox) Unknown Completed [facility] Influenza Virus Vaccine Quad IM, Preserv and ABX Free 6 MO-64 YRS (FLUCELVAX) Unknown Completed [facility] DTaP, Unspecified Formulation Unknown Completed [facility] Influenza Virus Vaccine Quad .5 mL IM 6+ MO (FLUZONE/FLULAVAL/FL UARIX) Unknown Completed [facility] Hep B, Adol or Pedi Dosage Unknown Completed [facility] HPV Unknown Completed [facility] HPV9 Unknown Completed [facility] Meningococcal Polysaccharide (groups A, C, Y and W-135) conjugate vaccine (MCV4P) Unknown Completed [facility] Meningococcal B, OMV Unknown Completed [facility] MMR Unknown Completed [facility] IPV Unknown Completed [facility] TDAP Unknown Completed [facility] Varicella (varivax)(chicken pox) Unknown Completed [facility] Influenza Virus Vaccine Quad IM, Preserv and ABX Free 6 MO-64 YRS (FLUCELVAX) Unknown Completed [facility] DTaP, Unspecified Formulation Unknown Completed [facility] Influenza Virus Vaccine Quad .5 mL IM 6+ MO (FLUZONE/FLULAVAL/FL UARIX) Unknown Completed [facility] Hep B, Adol or Pedi Dosage Unknown Completed [facility] HPV Unknown Completed [facility] HPV9 Unknown Completed [facility] Meningococcal Polysaccharide (groups A, C, Y and W-135) conjugate vaccine (MCV4P) Unknown Completed [facility] Meningococcal B, OMV Unknown Completed [facility] MMR Unknown Completed [facility] IPV Unknown Completed [facility] TDAP Unknown Completed [facility] Varicella (varivax)(chicken pox) Unknown Completed [facility] Influenza Virus Vaccine Quad IM, Preserv and ABX Free 6 MO-64 YRS (FLUCELVAX) Unknown Completed [facility] DTaP, Unspecified Formulation Unknown Completed [facility] Influenza Virus Vaccine Quad .5 mL IM 6+ MO (FLUZONE/FLULAVAL/FL UARIX) Unknown Completed [facility] Hep B, Adol or Pedi Dosage Unknown Completed [facility] HPV Unknown Completed [facility] HPV9 Unknown Completed [facility] Meningococcal Polysaccharide (groups A, C, Y and W-135) conjugate vaccine (MCV4P) Unknown Completed [facility] Meningococcal B, OMV Unknown Completed [facility] MMR Unknown Completed [facility] IPV Unknown Completed [facility] TDAP Unknown Completed [facility] Varicella (varivax)(chicken pox) Unknown Completed [facility] Influenza Virus Vaccine Quad IM, Preserv and ABX Free 6 MO-64 YRS (FLUCELVAX) Unknown Completed [facility] DTaP, Unspecified Formulation Unknown Completed [facility] Influenza Virus Vaccine Quad .5 mL IM 6+ MO (FLUZONE/FLULAVAL/FL UARIX) Unknown Completed [facility] Hep B, Adol or Pedi Dosage Unknown Completed [facility] HPV Unknown Completed [facility] HPV9 Unknown Completed [facility] Meningococcal Polysaccharide (groups A, C, Y and W-135) conjugate vaccine (MCV4P) Unknown Completed [facility] Meningococcal B, OMV Unknown Completed [facility] MMR Unknown Completed [facility] IPV Unknown Completed [facility] TDAP Unknown Completed [facility] Varicella (varivax)(chicken pox) Unknown Completed [facility] DTaP, Unspecified Formulation Unknown Completed [facility] Influenza Virus Vaccine Quad .5 mL IM 6+ MO (FLUZONE/FLULAVAL/FL UARIX) Unknown Completed [facility] Hep B, Adol or Pedi Dosage Unknown Completed [facility] HPV Unknown Completed [facility] HPV9 Unknown Completed [facility] MMR Unknown Completed [facility] IPV Unknown Completed [facility] Varicella (varivax)(chicken pox) Unknown Completed [facility] Influenza Virus Vaccine Quad IM, Preserv and ABX Free 6 MO-64 YRS (FLUCELVAX) Unknown Completed [facility] Meningococcal Polysaccharide (groups A, C, Y and W-135) conjugate vaccine (MCV4P) Unknown Completed [facility] Meningococcal B, OMV Unknown Completed [facility] TDAP Unknown Completed [facility] Influenza Virus Vaccine Quad IM, Preserv and ABX Free 6 MO-64 YRS (FLUCELVAX) Unknown Completed [facility] DTaP, Unspecified Formulation Unknown Completed [facility] Influenza Virus Vaccine Quad .5 mL IM 6+ MO (FLUZONE/FLULAVAL/FL UARIX) Unknown Completed [facility] Hep B, Adol or Pedi Dosage Unknown Completed [facility] HPV Unknown Completed [facility] HPV9 Unknown Completed [facility] Meningococcal Polysaccharide (groups A, C, Y and W-135) conjugate vaccine (MCV4P) Unknown Completed [facility] Meningococcal B, OMV Unknown Completed [facility] MMR Unknown Completed [facility] IPV Unknown Completed [facility] TDAP Unknown Completed [facility] Varicella (varivax)(chicken pox) Unknown Completed [facility] Influenza Virus Vaccine Quad IM, Preserv and ABX Free 6 MO-64 YRS (FLUCELVAX) Unknown Completed [facility] DTaP, Unspecified Formulation Unknown Completed [facility] Influenza Virus Vaccine Quad .5 mL IM 6+ MO (FLUZONE/FLULAVAL/FL UARIX) Unknown Completed [facility] Hep B, Adol or Pedi Dosage Unknown Completed [facility] HPV Unknown Completed [facility] HPV9 Unknown Completed [facility] Meningococcal Polysaccharide (groups A, C, Y and W-135) conjugate vaccine (MCV4P) Unknown Completed [facility] Meningococcal B, OMV Unknown Completed [facility] MMR Unknown Completed [facility] IPV Unknown Completed [facility] TDAP Unknown Completed [facility] Varicella (varivax)(chicken pox) Unknown Completed [facility] Influenza Virus Vaccine Quad IM, Preserv and ABX Free 6 MO-64 YRS (FLUCELVAX) Unknown Completed [facility] DTaP, Unspecified Formulation Unknown Completed [facility] Influenza Virus Vaccine Quad .5 mL IM 6+ MO (FLUZONE/FLULAVAL/FL UARIX) Unknown Completed [facility] Hep B, Adol or Pedi Dosage Unknown Completed [facility] HPV Unknown Completed [facility] HPV9 Unknown Completed [facility] Meningococcal Polysaccharide (groups A, C, Y and W-135) conjugate vaccine (MCV4P) Unknown Completed [facility] Meningococcal B, OMV Unknown Completed [facility] MMR Unknown Completed [facility] IPV Unknown Completed [facility] TDAP Unknown Completed [facility] Varicella (varivax)(chicken pox) Unknown Completed [facility] Influenza Virus Vaccine Quad IM, Preserv and ABX Free 6 MO-64 YRS (FLUCELVAX) Unknown Completed [facility] DTaP, Unspecified Formulation Unknown Completed [facility] Influenza Virus Vaccine Quad .5 mL IM 6+ MO (FLUZONE/FLULAVAL/FL UARIX) Unknown Completed [facility] Hep B, Adol or Pedi Dosage Unknown Completed [facility] HPV Unknown Completed [facility] HPV9 Unknown Completed [facility] Meningococcal Polysaccharide (groups A, C, Y and W-135) conjugate vaccine (MCV4P) Unknown Completed [facility] Meningococcal B, OMV Unknown Completed [facility] MMR Unknown Completed [facility] IPV Unknown Completed [facility] TDAP Unknown Completed [facility] Varicella (varivax)(chicken pox) Unknown Completed [facility] SARS-COV-2 COVID 19 JUAN LUIS SUCROSE VACCINE , 0.3 ML (30 MCG), IM PFIZER (TENORIO TOP) Unknown Completed [facility] DTaP, Unspecified Formulation Unknown Completed [facility] Influenza Virus Vaccine Quad .5 mL IM 6+ MO (FLUZONE/FLULAVAL/FL UARIX) Unknown Completed [facility] Hep B, Adol or Pedi Dosage Unknown Completed [facility] HPV Unknown Completed [facility] HPV9 Unknown Completed [facility] MMR Unknown Completed [facility] IPV Unknown Completed [facility] Varicella (varivax)(chicken pox) Unknown Completed [facility] SARS-COV-2 COVID 19 JUAN LUIS SUCROSE VACCINE , 0.3 ML (30 MCG), IM PFIZER (TENORIO TOP) Unknown Completed [facility] Influenza Virus Vaccine Quad IM, Preserv and ABX Free 6 MO-64 YRS (FLUCELVAX) Unknown Completed [facility] Meningococcal Polysaccharide (groups A, C, Y and W-135) conjugate vaccine (MCV4P) Unknown Completed [facility] Meningococcal B, OMV Unknown Completed [facility] TDAP Unknown Completed [facility] Influenza Virus Vaccine Quad IM, Preserv and ABX Free 6 MO-64 YRS (FLUCELVAX) Unknown Completed [facility] DTaP, Unspecified Formulation Unknown Completed [facility] Influenza Virus Vaccine Quad .5 mL IM 6+ MO (FLUZONE/FLULAVAL/FL UARIX) Unknown Completed [facility] Hep B, Adol or Pedi Dosage Unknown Completed [facility] HPV Unknown Completed [facility] HPV9 Unknown Completed [facility] Meningococcal Polysaccharide (groups A, C, Y and W-135) conjugate vaccine (MCV4P) Unknown Completed [facility] Meningococcal B, OMV Unknown Completed [facility] MMR Unknown Completed [facility] IPV Unknown Completed [facility] TDAP Unknown Completed [facility] Varicella (varivax)(chicken pox) Unknown Completed [facility] SARS-COV-2 COVID 19 JUAN LUIS SUCROSE VACCINE , 0.3 ML (30 MCG), IM PFIZER (TENORIO TOP) Unknown Completed [facility] Influenza Virus Vaccine Quad IM, Preserv and ABX Free 6 MO-64 YRS (FLUCELVAX) Unknown Completed [facility] DTaP, Unspecified Formulation Unknown Completed [facility] Influenza Virus Vaccine Quad .5 mL IM 6+ MO (FLUZONE/FLULAVAL/FL UARIX) Unknown Completed [facility] Hep B, Adol or Pedi Dosage Unknown Completed [facility] HPV Unknown Completed [facility] HPV9 Unknown Completed [facility] Meningococcal Polysaccharide (groups A, C, Y and W-135) conjugate vaccine (MCV4P) Unknown Completed [facility] Meningococcal B, OMV Unknown Completed [facility] MMR Unknown Completed [facility] IPV Unknown Completed [facility] TDAP Unknown Completed [facility] Varicella (varivax)(chicken pox) Unknown Completed [facility] SARS-COV-2 COVID 19 JUAN LUIS SUCROSE VACCINE , 0.3 ML (30 MCG), IM PFIZER (TENORIO TOP) Unknown Completed [facility] Influenza Virus Vaccine Quad IM, Preserv and ABX Free 6 MO-64 YRS (FLUCELVAX) Unknown Completed [facility] DTaP, Unspecified Formulation Unknown Completed [facility] Influenza Virus Vaccine Quad .5 mL IM 6+ MO (FLUZONE/FLULAVAL/FL UARIX) Unknown Completed [facility] Hep B, Adol or Pedi Dosage Unknown Completed [facility] HPV Unknown Completed [facility] HPV9 Unknown Completed [facility] Meningococcal Polysaccharide (groups A, C, Y and W-135) conjugate vaccine (MCV4P) Unknown Completed [facility] Meningococcal B, OMV Unknown Completed [facility] MMR Unknown Completed [facility] IPV Unknown Completed [facility] TDAP Unknown Completed [facility] Varicella (varivax)(chicken pox) Unknown Completed [facility] SARS-COV-2 COVID 19 JUAN LUIS SUCROSE VACCINE 12+, [id number], 0.3 ML (30 MCG), IM PFIZER (TENORIO TOP) Unknown Completed [facility] PPD (TB) Unknown Completed [facility] Influenza Virus Vaccine Quad IM, Preserv and ABX Free 6 MO-64 YRS (FLUCELVAX) Unknown Completed [facility] DTaP, Unspecified Formulation Unknown Completed [facility] Influenza Virus Vaccine Quad .5 mL IM 6+ MO (FLUZONE/FLULAVAL/FL UARIX) Unknown Completed [facility] Hep B, Adol or Pedi Dosage Unknown Completed [facility] HPV Unknown Completed [facility] HPV9 Unknown Completed [facility] Meningococcal Polysaccharide (groups A, C, Y and W-135) conjugate vaccine (MCV4P) Unknown Completed [facility] Meningococcal B, OMV Unknown Completed [facility] MMR Unknown Completed [facility] IPV Unknown Completed [facility] TDAP Unknown Completed [facility] Varicella (varivax)(chicken pox) Unknown Completed [facility] SARS-COV-2 COVID 19 JUAN LUIS SUCROSE VACCINE 12+, [id number], 0.3 ML (30 MCG), IM PFIZER (TENORIO TOP) Unknown Completed [facility] PPD (TB) Unknown Completed [facility] Influenza Virus Vaccine Quad IM, Preserv and ABX Free 6 MO-64 YRS (FLUCELVAX) Unknown Completed [facility] DTaP, Unspecified Formulation Unknown Completed [facility] Influenza Virus Vaccine Quad .5 mL IM 6+ MO (FLUZONE/FLULAVAL/FL UARIX) Unknown Completed [facility] Hep B, Adol or Pedi Dosage Unknown Completed [facility] HPV Unknown Completed [facility] HPV9 Unknown Completed [facility] Meningococcal Polysaccharide (groups A, C, Y and W-135) conjugate vaccine (MCV4P) Unknown Completed [facility] Meningococcal B, OMV Unknown Completed [facility] MMR Unknown Completed [facility] IPV Unknown Completed [facility] TDAP Unknown Completed [facility] Varicella (varivax)(chicken pox) Unknown Completed [facility] SARS-COV-2 COVID 19 JUAN LUIS SUCROSE VACCINE 12+, [id number], 0.3 ML (30 MCG), IM PFIZER (TENORIO TOP) Unknown Completed [facility] PPD (TB) Unknown Completed [facility] Influenza Virus Vaccine Quad IM, Preserv and ABX Free 6 MO-64 YRS (FLUCELVAX) Unknown Completed [facility] DTaP, Unspecified Formulation Unknown Completed [facility] Influenza Virus Vaccine Quad .5 mL IM 6+ MO (FLUZONE/FLULAVAL/FL UARIX) Unknown Completed [facility] Hep B, Adol or Pedi Dosage Unknown Completed [facility] HPV Unknown Completed [facility] HPV9 Unknown Completed [facility] Meningococcal Polysaccharide (groups A, C, Y and W-135) conjugate vaccine (MCV4P) Unknown Completed [facility] Meningococcal B, OMV Unknown Completed [facility] MMR Unknown Completed [facility] IPV Unknown Completed [facility] TDAP Unknown Completed [facility] Varicella (varivax)(chicken pox) Unknown Completed [facility] SARS-COV-2 COVID 19 JUAN LUIS SUCROSE VACCINE 12+, [id number], 0.3 ML (30 MCG), IM PFIZER (TENORIO TOP) Unknown Completed [facility] PPD (TB) Unknown Completed [facility] Influenza Virus Vaccine Quad IM, Preserv and ABX Free 6 MO-64 YRS (FLUCELVAX) Unknown Completed [facility] DTaP, Unspecified Formulation Unknown Completed [facility] Influenza Virus Vaccine Quad .5 mL IM 6+ MO (FLUZONE/FLULAVAL/FL UARIX) Unknown Completed [facility] Hep B, Adol or Pedi Dosage Unknown Completed [facility] HPV Unknown Completed [facility] HPV9 Unknown Completed [facility] Meningococcal Polysaccharide (groups A, C, Y and W-135) conjugate vaccine (MCV4P) Unknown Completed [facility] Meningococcal B, OMV Unknown Completed [facility] MMR Unknown Completed [facility] IPV Unknown Completed [facility] TDAP Unknown Completed [facility] Varicella (varivax)(chicken pox) Unknown Completed [facility] SARS-COV-2 COVID 19 JUAN LUIS SUCROSE VACCINE 12+, [id number], 0.3 ML (30 MCG), IM PFIZER (TENORIO TOP) Unknown Completed [facility] PPD (TB) Unknown Completed [facility] Influenza Virus Vaccine Quad IM, Preserv and ABX Free 6 MO-64 YRS (FLUCELVAX) Unknown Completed [facility] DTaP, Unspecified Formulation Unknown Completed [facility] Influenza Virus Vaccine Quad .5 mL IM 6+ MO (FLUZONE/FLULAVAL/FL UARIX) Unknown Completed [facility] Hep B, Adol or Pedi Dosage Unknown Completed [facility] HPV Unknown Completed [facility] HPV9 Unknown Completed [facility] Meningococcal Polysaccharide (groups A, C, Y and W-135) conjugate vaccine (MCV4P) Unknown Completed [facility] Meningococcal B, OMV Unknown Completed [facility] MMR Unknown Completed [facility] IPV Unknown Completed [facility] TDAP Unknown Completed [facility] Varicella (varivax)(chicken pox) Unknown Completed [facility] SARS-COV-2 COVID 19 JUAN LUIS SUCROSE VACCINE 12+, [id number], 0.3 ML (30 MCG), IM PFIZER (TENORIO TOP) Unknown Completed [facility] PPD (TB) Unknown Completed [facility] HEP B, Adult Dosage Unknown Completed [facility] Influenza Virus Vaccine Quad IM, Preserv and ABX Free 6 MO-64 YRS (FLUCELVAX) Unknown Completed [facility] DTaP, Unspecified Formulation Unknown Completed [facility] Influenza Virus Vaccine Quad .5 mL IM 6+ MO (FLUZONE/FLULAVAL/FL UARIX) Unknown Completed [facility] Hep B, Adol or Pedi Dosage Unknown Completed [facility] HPV Unknown Completed [facility] HPV9 Unknown Completed [facility] Meningococcal Polysaccharide (groups A, C, Y and W-135) conjugate vaccine (MCV4P) Unknown Completed [facility] Meningococcal B, OMV Unknown Completed [facility] MMR Unknown Completed [facility] IPV Unknown Completed [facility] TDAP Unknown Completed [facility] Varicella (varivax)(chicken pox) Unknown Completed [facility] SARS-COV-2 COVID 19 JUAN LUIS SUCROSE VACCINE 12+, 2649-5105, 0.3 ML (30 MCG), IM PFIZER (TENORIO TOP) Unknown Completed [facility] PPD (TB) Unknown Completed [facility] HEP B, Adult Dosage Unknown Completed [facility] Influenza Virus Vaccine Quad IM, Preserv and ABX Free 6 MO-64 YRS (FLUCELVAX) Unknown Completed [facility] DTaP, Unspecified Formulation Unknown Completed [facility] Influenza Virus Vaccine Quad .5 mL IM 6+ MO (FLUZONE/FLULAVAL/FL UARIX) Unknown Completed [facility] Hep B, Adol or Pedi Dosage Unknown Completed [facility] HPV Unknown Completed [facility] HPV9 Unknown Completed [facility] Meningococcal Polysaccharide (groups A, C, Y and W-135) conjugate vaccine (MCV4P) Unknown Completed [facility] Meningococcal B, OMV Unknown Completed [facility] MMR Unknown Completed [facility] IPV Unknown Completed [facility] TDAP Unknown Completed [facility] Varicella (varivax)(chicken pox) Unknown Completed [facility] SARS-COV-2 COVID 19 JUAN LUIS SUCROSE VACCINE 12+, [id number], 0.3 ML (30 MCG), IM PFIZER (TENORIO TOP) Unknown Completed [facility] PPD (TB) Unknown Completed [facility] HEP B, Adult Dosage Unknown Completed [facility] Influenza Virus Vaccine Quad IM, Preserv and ABX Free 6 MO-64 YRS (FLUCELVAX) Unknown Completed [facility] DTaP, Unspecified Formulation Unknown Completed [facility] Influenza Virus Vaccine Quad .5 mL IM 6+ MO (FLUZONE/FLULAVAL/FL UARIX) Unknown Completed [facility] Hep B, Adol or Pedi Dosage Unknown Completed [facility] HPV Unknown Completed [facility] HPV9 Unknown Completed [facility] Meningococcal Polysaccharide (groups A, C, Y and W-135) conjugate vaccine (MCV4P) Unknown Completed [facility] Meningococcal B, OMV Unknown Completed [facility] MMR Unknown Completed [facility] IPV Unknown Completed [facility] TDAP Unknown Completed [facility] Varicella (varivax)(chicken pox) Unknown Completed [facility] SARS-COV-2 COVID 19 JUAN LUIS SUCROSE VACCINE 12+, [id number], 0.3 ML (30 MCG), IM PFIZER (TENORIO TOP) Unknown Completed [facility] PPD (TB) Unknown Completed [facility] HEP B, Adult Dosage Unknown Completed [facility] Influenza Virus Vaccine Quad IM, Preserv and ABX Free 6 MO-64 YRS (FLUCELVAX) Unknown Completed [facility] DTaP, Unspecified Formulation Unknown Completed [facility] Influenza Virus Vaccine Quad .5 mL IM 6+ MO (FLUZONE/FLULAVAL/FL UARIX) Unknown Completed [facility] Hep B, Adol or Pedi Dosage Unknown Completed [facility] HPV Unknown Completed [facility] HPV9 Unknown Completed [facility] Meningococcal Polysaccharide (groups A, C, Y and W-135) conjugate vaccine (MCV4P) Unknown Completed [facility] Meningococcal B, OMV Unknown Completed [facility] MMR Unknown Completed [facility] IPV Unknown Completed [facility] TDAP Unknown Completed [facility] Varicella (varivax)(chicken pox) Unknown Completed [facility] SARS-COV-2 COVID 19 JUAN LUIS SUCROSE VACCINE 12+, 6765-3476, 0.3 ML (30 MCG), IM PFIZER (TENORIO TOP) Unknown Completed [facility] PPD (TB) Unknown Completed [facility] HEP B, Adult Dosage Unknown Completed [facility] Influenza Virus Vaccine Quad IM, Preserv and ABX Free 6 MO-64 YRS (FLUCELVAX) Unknown Completed [facility] DTaP, Unspecified Formulation Unknown Completed [facility] Influenza Virus Vaccine Quad .5 mL IM 6+ MO (FLUZONE/FLULAVAL/FL UARIX) Unknown Completed [facility] Hep B, Adol or Pedi Dosage Unknown Completed [facility] HPV Unknown Completed [facility] HPV9 Unknown Completed [facility] Meningococcal Polysaccharide (groups A, C, Y and W-135) conjugate vaccine (MCV4P) Unknown Completed [facility] Meningococcal B, OMV Unknown Completed [facility] MMR Unknown Completed [facility] IPV Unknown Completed [facility] TDAP Unknown Completed [facility] Varicella (varivax)(chicken pox) Unknown Completed [facility] SARS-COV-2 COVID 19 JUAN LUIS SUCROSE VACCINE , 0.3 ML (30 MCG), IM PFIZER (TENORIO TOP) Unknown Completed [facility] PPD (TB) Unknown Completed [facility] HEP B, Adult Dosage Unknown Completed [facility] Influenza Virus Vaccine Quad IM, Preserv and ABX Free 6 MO-64 YRS (FLUCELVAX) Unknown Completed [facility] DTaP, Unspecified Formulation Unknown Completed [facility] Influenza Virus Vaccine Quad .5 mL IM 6+ MO (FLUZONE/FLULAVAL/FL UARIX) Unknown Completed [facility] Hep B, Adol or Pedi Dosage Unknown Completed [facility] HPV Unknown Completed [facility] HPV9 Unknown Completed [facility] Meningococcal Polysaccharide (groups A, C, Y and W-135) conjugate vaccine (MCV4P) Unknown Completed [facility] Meningococcal B, OMV Unknown Completed [facility] MMR Unknown Completed [facility] IPV Unknown Completed [facility] TDAP Unknown Completed [facility] Varicella (varivax)(chicken pox) Unknown Completed [facility] SARS-COV-2 COVID 19 JUAN LUIS SUCROSE VACCINE , 0.3 ML (30 MCG), IM PFIZER (TENORIO TOP) Unknown Completed [facility] PPD (TB) Unknown Completed [facility] HEP B, Adult Dosage Unknown Completed [facility] Influenza Virus Vaccine Quad IM, Preserv and ABX Free 6 MO-64 YRS (FLUCELVAX) Unknown Completed [facility] DTaP, Unspecified Formulation Unknown Completed [facility] Influenza Virus Vaccine Quad .5 mL IM 6+ MO (FLUZONE/FLULAVAL/FL UARIX) Unknown Completed [facility] Hep B, Adol or Pedi Dosage Unknown Completed [facility] HPV Unknown Completed [facility] HPV9 Unknown Completed [facility] Meningococcal Polysaccharide (groups A, C, Y and W-135) conjugate vaccine (MCV4P) Unknown Completed [facility] Meningococcal B, OMV Unknown Completed [facility] MMR Unknown Completed [facility] IPV Unknown Completed [facility] TDAP Unknown Completed [facility] Varicella (varivax)(chicken pox) Unknown Completed [facility] SARS-COV-2 COVID 19 JUAN LUIS SUCROSE VACCINE 12+, 7476-1164, 0.3 ML (30 MCG), IM PFIZER (TENORIO TOP) Unknown Completed [facility] PPD (TB) Unknown Completed [facility] HEP B, Adult Dosage Unknown Completed [facility] Influenza Virus Vaccine Quad IM, Preserv and ABX Free 6 MO-64 YRS (FLUCELVAX) Unknown Completed [facility] DTaP, Unspecified Formulation Unknown Completed [facility] Influenza Virus Vaccine Quad .5 mL IM 6+ MO (FLUZONE/FLULAVAL/FL UARIX) Unknown Completed [facility] Hep B, Adol or Pedi Dosage Unknown Completed [facility] HPV Unknown Completed [facility] HPV9 Unknown Completed [facility] Meningococcal Polysaccharide (groups A, C, Y and W-135) conjugate vaccine (MCV4P) Unknown Completed [facility] Meningococcal B, OMV Unknown Completed [facility] MMR Unknown Completed [facility] IPV Unknown Completed [facility] TDAP Unknown Completed [facility] Varicella (varivax)(chicken pox) Unknown Completed [facility] SARS-COV-2 COVID 19 JUAN LUIS SUCROSE VACCINE 12+, 9355-7689, 0.3 ML (30 MCG), IM PFIZER (TENORIO TOP) Unknown Completed [facility] PPD (TB) Unknown Completed [facility] HEP B, Adult Dosage Unknown Completed [facility] Influenza Virus Vaccine Quad IM, Preserv and ABX Free 6 MO-64 YRS (FLUCELVAX) Unknown Completed [facility] DTaP, Unspecified Formulation Unknown Completed [facility] Influenza Virus Vaccine Quad .5 mL IM 6+ MO (FLUZONE/FLULAVAL/FL UARIX) Unknown Completed [facility] Hep B, Adol or Pedi Dosage Unknown Completed [facility] HPV Unknown Completed [facility] HPV9 Unknown Completed [facility] Meningococcal Polysaccharide (groups A, C, Y and W-135) conjugate vaccine (MCV4P) Unknown Completed [facility] Meningococcal B, OMV Unknown Completed [facility] MMR Unknown Completed [facility] IPV Unknown Completed [facility] TDAP Unknown Completed [facility] Varicella (varivax)(chicken pox) Unknown Completed [facility] SARS-COV-2 COVID 19 JUAN LUIS SUCROSE VACCINE +, 2348-3068, 0.3 ML (30 MCG), IM PFIZER (TENORIO TOP) Unknown Completed [facility] PPD (TB) Unknown Completed [facility] HEP B, Adult Dosage Unknown Completed [facility] Influenza Virus Vaccine Quad IM, Preserv and ABX Free 6 MO-64 YRS (FLUCELVAX) Unknown Completed [facility] DTaP, Unspecified Formulation Unknown Completed [facility] Influenza Virus Vaccine Quad .5 mL IM 6+ MO (FLUZONE/FLULAVAL/FL UARIX) Unknown Completed [facility] Hep B, Adol or Pedi Dosage Unknown Completed [facility] HPV Unknown Completed [facility] HPV9 Unknown Completed [facility] Meningococcal Polysaccharide (groups A, C, Y and W-135) conjugate vaccine (MCV4P) Unknown Completed [facility] Meningococcal B, OMV Unknown Completed [facility] MMR Unknown Completed [facility] IPV Unknown Completed [facility] TDAP Unknown Completed [facility] Varicella (varivax)(chicken pox) Unknown Completed [facility] SARS-COV-2 COVID 19 JUAN LUIS SUCROSE VACCINE +, 5347-0915, 0.3 ML (30 MCG), IM PFIZER (TENORIO TOP) Unknown Completed [facility] PPD (TB) Unknown Completed [facility] HEP B, Adult Dosage Unknown Completed [facility] Influenza Virus Vaccine Quad IM, Preserv and ABX Free 6 MO-64 YRS (FLUCELVAX) Unknown Completed [facility] DTaP, Unspecified Formulation Unknown Completed [facility] Influenza Virus Vaccine Quad .5 mL IM 6+ MO (FLUZONE/FLULAVAL/FL UARIX) Unknown Completed [facility] Hep B, Adol or Pedi Dosage Unknown Completed [facility] HPV Unknown Completed [facility] HPV9 Unknown Completed [facility] Meningococcal Polysaccharide (groups A, C, Y and W-135) conjugate vaccine (MCV4P) Unknown Completed [facility] Meningococcal B, OMV Unknown Completed [facility] MMR Unknown Completed [facility] IPV Unknown Completed [facility] TDAP Unknown Completed [facility] Varicella (varivax)(chicken pox) Unknown Completed [facility] SARS-COV-2 COVID 19 JUAN LUIS SUCROSE VACCINE , , 0.3 ML (30 MCG), IM PFIZER (TENORIO TOP) Unknown Completed [facility] PPD (TB) Unknown Completed [facility] HEP B, Adult Dosage Unknown Completed [facility] Influenza Virus Vaccine Quad IM, Preserv and ABX Free 6 MO-64 YRS (FLUCELVAX) Unknown Completed [facility] DTaP, Unspecified Formulation Unknown Completed [facility] Influenza Virus Vaccine Quad .5 mL IM 6+ MO (FLUZONE/FLULAVAL/FL UARIX) Unknown Completed [facility] Hep B, Adol or Pedi Dosage Unknown Completed [facility] HPV Unknown Completed [facility] HPV9 Unknown Completed [facility] Meningococcal Polysaccharide (groups A, C, Y and W-135) conjugate vaccine (MCV4P) Unknown Completed [facility] Meningococcal B, OMV Unknown Completed [facility] MMR Unknown Completed [facility] IPV Unknown Completed [facility] TDAP Unknown Completed [facility] Varicella (varivax)(chicken pox) Unknown Completed [facility] SARS-COV-2 COVID 19 JUAN LUIS SUCROSE VACCINE , , 0.3 ML (30 MCG), IM PFIZER (TENORIO TOP) Unknown Completed [facility] PPD (TB) Unknown Completed [facility] HEP B, Adult Dosage Unknown Completed [facility] Influenza Virus Vaccine Quad IM, Preserv and ABX Free 6 MO-64 YRS (FLUCELVAX) Unknown Completed [facility] DTaP, Unspecified Formulation Unknown Completed [facility] Influenza Virus Vaccine Quad .5 mL IM 6+ MO (FLUZONE/FLULAVAL/FL UARIX) Unknown Completed [facility] Hep B, Adol or Pedi Dosage Unknown Completed [facility] HPV Unknown Completed [facility] HPV9 Unknown Completed [facility] Meningococcal Polysaccharide (groups A, C, Y and W-135) conjugate vaccine (MCV4P) Unknown Completed [facility] Meningococcal B, OMV Unknown Completed [facility] MMR Unknown Completed [facility] IPV Unknown Completed [facility] TDAP Unknown Completed [facility] Varicella (varivax)(chicken pox) Unknown Completed [facility] SARS-COV-2 COVID 19 JUAN LUIS SUCROSE VACCINE , , 0.3 ML (30 MCG), IM PFIZER (TENORIO TOP) Unknown Completed [facility] PPD (TB) Unknown Completed [facility] HEP B, Adult Dosage Unknown Completed [facility] Influenza Virus Vaccine Quad IM, Preserv and ABX Free 6 MO-64 YRS (FLUCELVAX) Unknown Completed [facility] DTaP, Unspecified Formulation Unknown Completed [facility] Influenza Virus Vaccine Quad .5 mL IM 6+ MO (FLUZONE/FLULAVAL/FL UARIX) Unknown Completed [facility] Hep B, Adol or Pedi Dosage Unknown Completed [facility] HPV Unknown Completed [facility] HPV9 Unknown Completed [facility] Meningococcal Polysaccharide (groups A, C, Y and W-135) conjugate vaccine (MCV4P) Unknown Completed [facility] Meningococcal B, OMV Unknown Completed [facility] MMR Unknown Completed [facility] IPV Unknown Completed [facility] TDAP Unknown Completed [facility] Varicella (varivax)(chicken pox) Unknown Completed [facility] SARS-COV-2 COVID 19 JUAN LUIS SUCROSE VACCINE +, , 0.3 ML (30 MCG), IM PFIZER (TENORIO TOP) Unknown Completed [facility] PPD (TB) Unknown Completed [facility] HEP B, Adult Dosage Unknown Completed [facility] Influenza Virus Vaccine Quad IM, Preserv and ABX Free 6 MO-64 YRS (FLUCELVAX) Unknown Completed [facility] DTaP, Unspecified Formulation Unknown Completed [facility] Influenza Virus Vaccine Quad .5 mL IM 6+ MO (FLUZONE/FLULAVAL/FL UARIX) Unknown Completed [facility] Hep B, Adol or Pedi Dosage Unknown Completed [facility] HPV Unknown Completed [facility] HPV9 Unknown Completed [facility] Meningococcal Polysaccharide (groups A, C, Y and W-135) conjugate vaccine (MCV4P) Unknown Completed [facility] Meningococcal B, OMV Unknown Completed [facility] MMR Unknown Completed [facility] IPV Unknown Completed [facility] TDAP Unknown Completed [facility] Varicella (varivax)(chicken pox) Unknown Completed [facility] SARS-COV-2 COVID 19 JUAN LUIS SUCROSE VACCINE 12+, , 0.3 ML (30 MCG), IM PFIZER (TENORIO TOP) Unknown Completed [facility] PPD (TB) Unknown Completed [facility] HEP B, Adult Dosage Unknown Completed [facility] Vital Signs Vital Name Observation Time Observation Value Comments S ource Systolic blood pressure 2024-01-19 14:14:00 106 mm[Hg] [facility] Diastolic blood pressure 2024-01-19 14:14:00 71 mm[Hg] [facility] Heart rate 2024-01-19 14:14:00 80 /min [facility] Body temperature 2024-01-19 14:14:00 36.56 [facility] Body height 2024-01-19 14:14:00 157.5 cm [facility] Body weight 2024-01-19 14:14:00 66.815 kg [facility] BMI 2024-01-19 14:14:00 26.94 kg/m2 [facility] Oxygen saturation in Arterial blood by Pulse oximetry 2024-01-19 14:14:00 99 /min [facility] Systolic blood pressure 2023-12-13 18:00:00 100 mm[Hg] [facility] Diastolic blood pressure 2023-12-13 18:00:00 72 mm[Hg] [facility] Heart rate 2023-12-13 18:00:00 95 /min [facility] Body temperature 2023-12-13 18:00:00 36.72 Jose[facility] Body weight 2023-12-13 18:00:00 63.957 kg [facility] BMI 2023-12-13 18:00:00 25.79 kg/m2 [facility] Oxygen saturation in Arterial blood by Pulse oximetry 2023-12-13 18:00:00 98 /min [facility] Systolic blood pressure 2023-10-28 17:53:00 114 mm[Hg] [facility] Diastolic blood pressure 2023-10-28 17:53:00 79 mm[Hg] [facility] Heart rate 2023-10-28 17:53:00 80 /min [facility] Body temperature 2023-10-28 17:53:00 36.94 [facility] Respiratory rate 2023-10-28 17:53:00 18 /min [facility] Body weight 2023-10-28 17:53:00 64.864 kg [facility] BMI 2023-10-28 17:53:00 26.16 kg/m2 [facility] Oxygen saturation in Arterial blood by Pulse oximetry 2023-10-28 17:53:00 99 /min [facility] Systolic blood pressure 2023-10-15 15:23:00 102 mm[Hg] [facility] Diastolic blood pressure 2023-10-15 15:23:00 68 mm[Hg] [facility] Heart rate 2023-10-15 15:23:00 85 /min [facility] Body temperature 2023-10-15 15:23:00 36.78 [facility] Respiratory rate 2023-10-15 15:23:00 18 /min [facility] Body height 2023-10-15 15:23:00 157.5 cm [facility] Body weight 2023-10-15 15:23:00 63.504 kg [facility] BMI 2023-10-15 15:23:00 25.61 kg/m2 [facility] Oxygen saturation in Arterial blood by Pulse oximetry 2023-10-15 15:23:00 98 /min [facility] Systolic blood pressure 2023-09-03 20:37:00 97 mm[Hg] [facility] Diastolic blood pressure 2023-09-03 20:37:00 67 mm[Hg] [facility] Heart rate 2023-09-03 20:37:00 102 /min [facility] Body temperature 2023-09-03 20:37:00 37.17 [facility] Body height 2023-09-03 20:37:00 157.5 cm [facility] Body weight 2023-09-03 20:37:00 63.368 kg [facility] BMI 2023-09-03 20:37:00 25.55 kg/m2 [facility] Oxygen saturation in Arterial blood by Pulse oximetry 2023-09-03 20:37:00 99 /min [facility] Systolic blood pressure 2023-08-22 12:26:00 104 mm[Hg] [facility] Diastolic blood pressure 2023-08-22 12:26:00 70 mm[Hg] [facility] Heart rate 2023-08-22 12:26:00 82 /min [facility] Body height 2023-08-22 12:26:00 157.5 cm [facility] Body weight 2023-08-22 12:26:00 60.782 kg [facility] BMI 2023-08-22 12:26:00 24.51 kg/m2 [facility] Oxygen saturation in Arterial blood by Pulse oximetry 2023-08-22 12:26:00 98 /min [facility] Systolic blood pressure 2023-07-04 15:48:00 102 mm[Hg] [facility] Diastolic blood pressure 2023-07-04 15:48:00 71 mm[Hg] [facility] Heart rate 2023-07-04 15:48:00 76 /min [facility] Body temperature 2023-07-04 15:48:00 36.72 [facility] Body height 2023-07-04 15:48:00 157.5 cm [facility] Body weight 2023-07-04 15:48:00 63.504 kg [facility] BMI 2023-07-04 15:48:00 25.61 kg/m2 [facility] Systolic blood pressure 2023-04-28 19:06:00 97 mm[Hg] [facility] Diastolic blood pressure 2023-04-28 19:06:00 65 mm[Hg] [facility] Heart rate 2023-04-28 19:06:00 89 /min [facility] Body temperature 2023-04-28 19:06:00 36.78 [facility] Respiratory rate 2023-04-28 19:06:00 18 /min [facility] Body height 2023-04-28 19:06:00 157.5 cm [facility] Body weight 2023-04-28 19:06:00 64.547 kg [facility] BMI 2023-04-28 19:06:00 26.03 kg/m2 [facility] Oxygen saturation in Arterial blood by Pulse oximetry 2023-04-28 19:06:00 99 /min [facility] Systolic blood pressure 2023-03-07 20:33:00 111 mm[Hg] [facility] Diastolic blood pressure 2023-03-07 20:33:00 78 mm[Hg] [facility] Heart rate 2023-03-07 20:33:00 85 /min [facility] Body temperature 2023-03-07 20:33:00 36.83 [facility] Respiratory rate 2023-03-07 20:33:00 18 /min [facility] Body height 2023-03-07 20:33:00 157.5 cm [facility] Body weight 2023-03-07 20:33:00 67.314 kg [facility] BMI 2023-03-07 20:33:00 27.14 kg/m2 [facility] [facility] saturation in Arterial blood by Pulse oximetry 2023-03-07 20:33:00 96 /min [facility] Systolic blood pressure 2023-01-30 23:48:00 94 mm[Hg] [facility] Diastolic blood pressure 2023-01-30 23:48:00 61 mm[Hg] [facility] Heart rate 2023-01-30 23:48:00 90 /min [facility] Body temperature 2023-01-30 23:48:00 36.83 Josefa [facility] Respiratory rate 2023-01-30 23:48:00 14 /min [facility] Body height 2023-01-30 23:48:00 157.5 cm [facility] Body weight 2023-01-30 23:48:00 67.677 kg Univ [facility] BMI 2023-01-30 23:48:00 27.29 kg/m2 [facility] Oxygen saturation in Arterial blood by Pulse oximetry 2023-01-30 23:48:00 100 /min [facility] Systolic blood pressure 2022-12-04 19:17:00 95 mm[Hg] [facility] Diastolic blood pressure 2022-12-04 19:17:00 62 mm[Hg] [facility] Heart rate 2022-12-04 19:17:00 84 /min [facility] Body temperature 2022-12-04 19:17:00 36.89 Josefa [facility] Body height 2022-12-04 19:17:00 157.5 cm [facility] Body weight 2022-12-04 19:17:00 69.4 kg [facility] BMI 2022-12-04 19:17:00 27.98 kg/m2 [facility] Oxygen saturation in Arterial blood by Pulse oximetry 2022-12-04 19:17:00 100 /min [facility] Systolic blood pressure 2022-10-28 18:51:00 106 mm[Hg] [facility] Diastolic blood pressure 2022-10-28 18:51:00 72 mm[Hg] [facility] Heart rate 2022-10-28 18:50:00 85 /min [facility] Body height 2022-10-28 18:50:00 157.5 cm [facility] Body weight 2022-10-28 18:50:00 65.635 kg [facility] BMI 2022-10-28 18:50:00 26.47 kg/m2 [facility] Oxygen saturation in Arterial blood by Pulse oximetry 2022-10-28 18:50:00 100 /min [facility] Systolic blood pressure 2022-09-26 03:37:56 116 mm[Hg] [facility] Diastolic blood pressure 2022-09-26 03:37:56 74 mm[Hg] [facility] Heart rate 2022-09-26 03:37:56 95 /min [facility] Oxygen saturation in Arterial blood by Pulse oximetry 2022-09-26 03:37:56 100 /min [facility] Body temperature 2022-09-26 03:35:00 37 Josefa [facility] Respiratory rate 2022-09-26 03:35:00 16 /min [facility] Body weight 2022-09-26 03:35:00 64.864 kg [facility] BMI 2022-09-26 03:35:00 26.16 kg/m2 [facility] Systolic blood pressure 2022-09-24 16:54:00 116 mm[Hg] [facility] Diastolic blood pressure 2022-09-24 16:54:00 72 mm[Hg] [facility] Heart rate 2022-09-24 16:54:00 103 /min [facility] Body temperature 2022-09-24 16:54:00 36.89 Josefa [facility] Respiratory rate 2022-09-24 16:54:00 18 /min [facility] Body height 2022-09-24 16:54:00 157.5 cm [facility] Body weight 2022-09-24 16:54:00 64.864 kg Univ [facility] BMI 2022-09-24 16:54:00 26.16 kg/m2 Univ [facility] Oxygen saturation in Arterial blood by Pulse oximetry 2022-09-24 16:54:00 99 /min [facility] Systolic blood pressure 2022-07-02 19:52:00 92 mm[Hg] [facility] Diastolic blood pressure 2022-07-02 19:52:00 56 mm[Hg] [facility] Heart rate 2022-07-02 19:52:00 85 /min [facility] Body temperature 2022-07-02 19:52:00 36.72 Josefa [facility] Body height 2022-07-02 19:52:00 157.5 cm Univ [facility] Body weight 2022-07-02 19:52:00 67.586 kg [facility] BMI 2022-07-02 19:52:00 27.25 kg/m2 [facility] Oxygen saturation in Arterial blood by Pulse oximetry 2022-07-02 19:52:00 100 /min [facility] Systolic blood pressure 2022-02-28 01:10:00 96 mm[Hg] [facility] Diastolic blood pressure 2022-02-28 01:10:00 64 mm[Hg] [facility] Heart rate 2022-02-28 01:10:00 99 /min [facility] Body temperature 2022-02-28 01:10:00 36.72 Josefa [facility] Respiratory rate 2022-02-28 01:10:00 18 /min [facility] Body weight 2022-02-28 01:10:00 64.864 kg [facility] Oxygen saturation in Arterial blood by Pulse oximetry 2022-02-28 01:10:00 99 /min [facility] Systolic blood pressure 2022-02-03 20:53:00 93 mm[Hg] [facility] Diastolic blood pressure 2022-02-03 20:53:00 65 mm[Hg] [facility] Heart rate 2022-02-03 20:53:00 90 /min [facility] Body temperature 2022-02-03 20:53:00 36.67 Josefa [facility] Respiratory rate 2022-02-03 20:53:00 16 /min [facility] Body height 2022-02-03 20:53:00 157.5 cm [facility] Body weight 2022-02-03 20:53:00 65.454 kg [facility] BMI 2022-02-03 20:53:00 26.39 kg/m2 [facility] Oxygen saturation in Arterial blood by Pulse oximetry 2022-02-03 20:53:00 99 /min [facility] Systolic blood pressure 2022-01-19 17:42:00 100 mm[Hg] [facility] Diastolic blood pressure 2022-01-19 17:42:00 69 mm[Hg] [facility] Heart rate 2022-01-19 17:42:00 88 /min [facility] Body temperature 2022-01-19 17:42:00 36.83 Josefa [facility] Respiratory rate 2022-01-19 17:42:00 15 /min [facility] Body height 2022-01-19 17:42:00 157.5 cm [facility] Body weight 2022-01-19 17:42:00 64.411 kg [facility] BMI 2022-01-19 17:42:00 25.97 kg/m2 [facility] Oxygen saturation in Arterial blood by Pulse oximetry 2022-01-19 17:42:00 98 /min [facility] Systolic blood pressure 2022-01-18 02:10:00 116 mm[Hg] [facility] Diastolic blood pressure 2022-01-18 02:10:00 82 mm[Hg] [facility] Heart rate 2022-01-18 02:10:00 106 /min [facility] Body temperature 2022-01-18 02:10:00 36.44 Josefa [facility] Respiratory rate 2022-01-18 02:10:00 17 /min [facility] Body weight 2022-01-18 02:10:00 65.681 kg [facility] Oxygen saturation in Arterial blood by Pulse oximetry 2022-01-18 02:10:00 99 /min [facility] Systolic blood pressure 2022-01-09 14:19:00 105 mm[Hg] [facility] Diastolic blood pressure 2022-01-09 14:19:00 66 mm[Hg] [facility] Heart rate 2022-01-09 14:19:00 76 /min [facility] Body height 2022-01-09 14:19:00 157.5 cm [facility] Body weight 2022-01-09 14:19:00 65.318 kg [facility] BMI 2022-01-09 14:19:00 26.34 kg/m2 [facility] Oxygen saturation in Arterial blood by Pulse oximetry 2022-01-09 14:19:00 97 /min [facility] Systolic blood pressure 2021-07-10 19:33:00 105 mm[Hg] [facility] Diastolic blood pressure 2021-07-10 19:33:00 68 mm[Hg] [facility] Heart rate 2021-07-10 19:32:00 86 /min [facility] Body height 2021-07-10 19:32:00 157.5 cm [facility] Body weight 2021-07-10 19:32:00 62.596 kg [facility] BMI 2021-07-10 19:32:00 25.24 kg/m2 [facility] Body mass index (BMI) [Percentile] Per age and sex 2021-07-10 19:32:00 81.77 % [facility] Oxygen saturation in Arterial blood by Pulse oximetry 2021-07-10 19:32:00 98 /min [facility] Procedures Procedure Date / Time Performed Performing Clinician Source COMP. METABOLIC PANEL (22239) 2024-01-19 14:52:00 Malik Bowens [facility] XR CHEST 2 VW 2023-12-13 18:35:06 Cristopher Rose [facility] POCT MOLECULAR RSV 2023-12-13 18:28:00 [facility]LE[facility] STREP 2023-12-13 17:57:00 Unknown, Lacey rashid [facility] XR FINGERS 2 VW RIGHT 2023-10-28 18:23:30 Nate Delarosa [facility] HEPATITIS B VACCINE,ADULT,IM 2023-10-15 17:15:00 Gabby Kiser [facility] XR SACRUM AND COCCYX 2023-10-15 17:08:58 Yeni Piña [facility] XR LUMBAR SPINE 4 VW 2023-10-15 17:08:48 Yeni Piña [facility] XR CHEST 2 VW 2023-10-15 17:08:38 Ashley Piña [facility] MAGNESIUM 2023-10-15 16:49:00 Ashley Piña [facility] VITAMIN B12, LEVEL 2023-10-15 16:49:00 Ashley Piña [facility] FOLATE 2023-10-15 16:49:00 Ashley Piña [facility] INSULIN, LEVEL 2023-10-15 16:49:00 Ashley Piña Un [facility] RHEUMATOID FACTOR 2023-10-15 16:49:00 Ashley Piña [facility] THYROID STIMULATING HORMONE 2023-10-15 16:49:00 Ashley iPña [facility] COMP. METABOLIC PANEL (44751) 2023-10-15 16:49:00 Ashley Piña [facility] LIPID PANEL (72217)(TOTAL CHOLESTEROL, TRIGLYCERIDES, HDL) 2023-10-15 16:49:00 Ashley Piña [facility] SEDIMENTATION RATE 2023-10-15 16:49:00 Ashley Piña [facility] CBC WITH DIFF 2023-10-15 16:49:00 Ashley Piña [facility] GLYCOSYLATED HEMOGLOBIN (A1C) 2023-10-15 16:49:00 Ashley Piña [facility] ANTI-NUCLEAR ANTIBODY SCREEN 2023-10-15 16:49:00 Ashley Piña [facility] HCV ANTIBODY 2023-10-15 16:49:00 Ashley Piña [facility] VITAMIN D, 25-OH 2023-10-15 16:49:00 Ashley Piña [facility] HIV 1/2 AG-AB WITH REFLEX 2023-10-15 16:49:00 Ashley Piña [facility] ANTI-NUCLEAR ANTIBODY-PATHOLOGIST INTERPRETATION 2023-10-15 16:49:00 Ashley Piña [facility] POCT TEST 2023-10-15 16:37:00 Ashley Piña [facility] HB ECG ROUTINE & RHYTHM STRIP 2023-10-15 16:26:18 Ashley Piña [facility] POCT TEST 2023-10-15 00:00:00 Ashley Piña [facility] HEPATITIS B VACCINE,ADULT,IM 2023-09-15 15:24:43 Gabby Kiser [facility] PPD (TB) 2023-09-15 15:23:23 Gabby [facility]iser [facility] PPD (TB) 2023-08-22 12:56:04 Ashley Piña [facility] SARS-COV-2 COVID 19 JUAN LUIS SUCROSE VACCINE 12+, , 0.3 ML (30 MCG), IM PFIZER (TENORIO TOP) 2023-07-04 13:11:20 Gabby Kiser [facility] POCT URINALYSIS 2023-07-04 00:00:00 Gabby Kiser [facility] FLU VACC ([id number]), 6 MO-64 YRS, .5ML, IM, QUAD (FLUCELVAX) 2023-04-28 19:13:27 Gabby Kiser [facility] PATIENT FINANCIAL RESPONSIBILITY - ALL FORMS 2023-04-28 05:01:00 Doctor Unassigned, [place] [facility] US ABDOMEN LIMITED 2023-03-13 20:54:29 Hina Norton [facility] ASSIGNMENT OF BENEFITS 2023-03-07 20:13:50 Docto r Unassigned, [place] [facility] POCT MOLECULAR FLU 2023-01-30 23:56:00 Unknown, Attend ing [facility] POCT MOLECULAR STREP 2023-01-30 23:46:00 Unknown, Atte gay [facility] POCT SARS-COV-2 ANTIGEN (BINAX NOW) 2022-12-04 20:06:00 Gabby Kiser [facility] POCT MOLECULAR FLU 2022-12-04 19:52:00 [facility] FOREIGN BODY REMOVAL - ORIFICE 2022-09-26 03:54:41 Jayjay Keita [facility] NOTICE OF PRIVACY PRACTICES 2022-09-26 03:20:58 Doctor Unassigned, [place] [facility] CONSENT/REFUSAL FOR DIAGNOSIS AND TREATMENT 2022-09-26 03:20:37 Doctor Unassigned, [place] [facility] PATIENT FINANCIAL POLICY 2022-07-02 19:26:54 Doctor Unassigned, [place] [facility] CONSENT/REFUSAL FOR DIAGNOSIS AND TREATMENT 2022-02-28 01:04:05 Doctor Unassigned, [place] [facility] ASSIGNMENT OF BENEFITS 2022-02-28 01:03:42 Docto r Unassigned, [place] [facility] POCT MOLECULAR STREP 2022-01-19 17:43:00 Unknown, Atte gay [facility] POCT URINALYSIS 2022-01-18 02:46:00 Cristopher Rose [facility] FLU VACC ([id number]), 6 MO-64 YRS, .5ML, IM, QUAD (FLUCELVAX) 2022-01-09 15:17:50 Gabby Kiser [facility] EXTERNAL PROVIDER RECORDS 2021-08-27 05:01:00 Do ctor Unassigned, [place] [facility] Encounters Start Date/Time End Date/Time Encounter Type Admission Type Attending Clinicians Care Facility Care Department Encounter ID Source 2020-12-18 04:09:56 Emergency [facility] [id number] [facility] 2024-01-26 00:00:00 2024-01-27 09:23:14 Gabby Morillo [facility] 1.2840.114 350.1.13.10 4.2.7.2.686 [id number] [facility] 2024-01-19 08:45:00 2024-01-19 09:00:00 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, 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 Malik Bowens 2, Adc Lab [facility] 1.2840.114 350.1.13.10 4.2.7.2.686 [id number] [facility] 2024-01-19 08:00:00 2024-01-19 08:38:41 Outpatient R MALIK BOWENS OGECHUKWU [facility] [id number] [facility] 2024-01-19 08:00:00 2024-01-19 08:38:41 Office Visit Malik Bowens [facility] 1.284.114 350.1.13.10 4.2.7.2.686 [id number] [facility] 2023-12-23 00:00:00 2023-12-23 16:42:27 Gabby Morillo [facility] 1.2840.114 350.1.13.10 4.2.7.2.686 [id number] [facility] 2023-12-17 00:00:00 2023-12-17 16:42:32 Patient Secure Gabby Desir [facility] 1.2840.114 350.1.13.10 4.2.7.2.686 [id number] [facility] 2023-12-17 00:00:00 2023-12-17 14:13:49 Patient Secure Ashley Mack [facility] 1.114 350.1.13.10 4.2.7.2.686 [id number] [facility] 2023-12-13 13:30:02 2023-12-13 23:59:00 Outpatient R CRISTOPHER ROSE [facility] [id number] [facility] 2023-12-13 13:30:02 2023-12-13 23:59:00 Hospital Encounter Milton Cristopher [facility] 1.114 350.1.13.10 4.2.7.2.686 [id number] [facility] 2023-12-13 12:40:00 2023-12-13 14:04:29 Urgent Care Cristopher Rose Unknown, Attending [facility] 1.114 350.1.13.10 4.2.7.2.686 [id number] [facility] 2023-11-20 09:00:00 2023-11-20 09:14:22 Outpatient R CASSIE PEGUERO [facility] [id number] [facility] 2023-11-20 09:00:00 2023-11-20 09:14:22 Office Visit Cassie Peguero [facility] 1.114 350.1.13.10 4.2.7.2.686 [id number] [facility] 2023-11-18 00:00:00 2023-11-19 07:24:23 Refill Gabby Kiser [facility] 1.114 350.1.13.10 4.2.7.2.686 [id number] [facility] 2023-11-11 00:00:00 2023-11-12 11:24:36 Patient Secure Msg Gabby Kiser [facility] 1.840.114 350.1.13.10 4.2.7.2.686 [id number] [facility] 2023-11-03 11:30:00 2023-11-03 11:30:00 Outpatient AUGUSTO RIOS RUTH [facility] [id number] [facility] 2023-10-30 08:45:00 2023-10-30 08:45:00 Outpatient R MACKENZIE DENNY CRAIG [facility] [id number] [facility] 2023-10-28 13:00:50 2023-10-28 23:59:00 Outpatient R PADMINI NEDA [facility] [id number] [facility] 2023-10-28 13:00:50 2023-10-28 23:59:00 Hospital En[facility] 1.840.114 350.1.13.10 4.2.7.2.686 [id number] [facility] 2023-10-28 12:40:00 2023-10-28 13:00:00 Urgent Care Neda Delarosa Unknown, Attending [facility] 1.840.114 350.1.13.10 4.2.7.2.686 [id number] [facility] 2023-10-23 00:00:00 2023-10-23 09:30:35 Patient Secure Msg Doctor Unassigned, [place] Doctor Unassigned, [place] [facility] 1.840.114 350.1.13.10 4.2.7.2.686 [id number] [facility] 2023-10-23 00:00:00 2023-10-23 09:30:12 Patient Secure Msg Doctor Unassigned, [place] Doctor Unassigned, [place] [facility] 1.2.840.114 350.1.13.10 4.2.7.2.686 [id number] [facility] 2023-10-23 00:00:00 2023-10-23 08:54:11 Telephone Ashley Piña [facility] 1.2.840.114 350.1.13.10 4.2.7.2.686 [id number] [facility] 2023-10-21 00:00:00 2023-10-21 13:28:36 Patient Secure Msg Doctor Unassigned, [place] Doctor Unassigned, [place] [facility] 1..840.114 350.1.13.10 4.2.7.2.686 [id number] [facility] 2023-10-16 14:00:00 2023-10-16 14:15:00 [employer] Visit [facility] Mason Fitch [facility] 1..840.114 350.1.13.10 4.2.7.2.686 [id number] [facility] 2023-10-16 14:00:00 2023-10-16 14:00:00 Outpatient MASON NICOLE STRAHIL [facility] [id number] [facility] 2023-10-15 11:30:00 2023-10-15 23:59:00 Outpatient R ASHLEY PIÑA [facility] [id number] [facility] 2023-10-15 11:30:00 2023-10-15 23:59:00 Hospital Encounter Ashley Piña [facility] 1.2840.114 350.1.13.10 4.2.7.2.686 [id number] [facility] 2023-10-15 13:30:00 2023-10-15 13:30:00 Nurse Visit Nurse, Ang Db Wang, Ashley Federico Nurse, Ang Db [facility]AN [facility] 1.2840.114 350.1.13.10 4.2.7.2.686 [id number] [facility] 2023-10-15 11:45:00 2023-10-15 12:07:57 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, Ang - Db Wang, Ashley Federico Lab, Ang - Db [facility] 1.2840.114 350.1.13.10 4.2.7.2.686 [id number] [facility] 2023-10-15 10:30:00 2023-10-15 12:03:41 Office Visit Ashley Piña [facility] 1.2840.114 350.1.13.10 4.2.7.2.686 [id number] [facility] 2023-10-15 11:15:00 2023-10-15 11:29:00 Hospital Encounter Ashley Piña [facility] 1.2840.114 350.1.13.10 4.2.7.2.686 [id number] [facility] 2023-10-15 11:00:00 2023-10-15 11:14:00 Hospital Encounter Ashley Piña [facility] 1.2840.114 350.1.13.10 4.2.7.2.686 [id number] [facility] 2023-09-17 13:30:00 2023-09-17 13:50:00 Nurse Visit Nurse, Dieudonne Kiser [facility] 1.840.114 350.1.13.10 4.2.7.2.686 [id number] [facility] 2023-09-17 13:30:00 2023-09-17 13:30:00 Outpatient R GABBY KISER [facility] [id number] [facility] 2023-09-15 10:20:00 2023-09-15 10:20:00 Nurse Visit Nurse, Dieud[facility]iser [facility] 1.84.114 350.1.13.10 4.2.7.2.686 [id number] [facility] 2023-09-15 10:20:00 2023-09-15 10:16:48 Outpatient R GABBY KISER [facility] [id number] [facility] 2023-09-03 16:00:00 2023-09-03 16:00:00 Office [facility] Margi [facility] 1.84.114 350.1.13.10 4.2.7.2.686 [id number] [facility] 2023-09-03 16:00:00 2023-09-03 15:56:04 Outpatient R GABBY KISER [facility] [id number] [facility] 2023-08-28 00:00:00 2023-08-28 16:13:53 Telephone Margi Gabby [facility] 1.840.114 350.1.13.10 4.2.7.2.686 [id number] [facility] 2023-08-27 00:00:00 2023-08-27 11:21:19 Patient Secure Msg Doctor Unassigned, [place] [facility] 1.2.840.114 350.1.13.10 4.2.7.2.686 [id number] [facility] 2023-08-22 08:15:00 2023-08-22 08:30:00 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, Ang - Roberth BarnettAshley nunez [facility] 1..840.114 350.1.13.10 4.2.7.2.686 [id number] [facility] 2023-08-22 07:30:00 2023-08-22 08:25:49 Outpatient R ASHLEY PIÑA [facility] [id number] [facility] 2023-08-22 07:30:00 2023-08-22 08:25:49 Office Visit WangAshley [facility] 1..840.114 350.1.13.10 4.2.7.2.686 [id number] [facility] 2023-07-08 00:00:00 2023-08-09 18:19:54 Patient Secure Msg Doctor Unassigned, [place] [facility] 1.2.840.114 350.1.13.10 4.2.7.2.686 [id number] [facility] 2023-08-04 11:00:00 2023-08-04 11:00:00 Outpatient GABBY HARRELL [facility] [id number] [facility] 2023-07-18 08:30:00 2023-07-18 08:30:00 Outpatient CHETAN GOODEN [facility] [id number] [facility] 2023-07-16 16:00:00 2023-07-16 16:22:26 Outpatient R LEROY JOHN PAULSERGIO [facility] [id number] [facility] 2023-07-04 11:30:00 2023-07-04 11:45:00 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, Dieudonne Kiser Gabby [facility] 1.114 350.1.13.10 4.2.7.2.686 [id number] [facility] 2023-07-04 11:00:00 2023-07-04 11:15:33 Office Visit Margi Gabby [facility] 1.114 350.1.13.10 4.2.7.2.686 [id number] [facility] 2023-07-04 08:00:00 2023-07-04 08:34:55 Outpatient R GABBY [facility] [id number] [facility] 2023-07-04 08:00:00 2023-07-04 08:10:00 Imm/Inj Visit Vaccine, Dieudonne Leep Cbc Fam Unknown, Attending [facility] 1.114 350.1.13.10 4.2.7.2.686 [id number] [facility] 2023-05-27 00:00:00 2023-05-27 00:00:00 Letter (Out) [facility] 1.114 350.1.13.10 4.2.7.2.686 [id number] [facility] 2023-04-29 00:00:00 2023-04-29 00:00:00 Patient Secure Msg Doctor Unassigned, [place] [facility] [facility] 1.114 350.1.13.10 4.2.7.2.686 [id number] 044 [id number] [facility] 2023-04-28 15:00:00 2023-04-28 15:15:00 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, Dieudonne JesusGabby caballero [facility] 1.114 350.1.13.10 4.2.7.2.686 [id number] [facility] 2023-04-28 14:00:00 2023-04-28 14:44:24 Outpatient R GABBY KISER [facility] [id number] [facility] 2023-04-28 14:00:00 2023-04-28 14:44:24 Office Visit Ann MarieGabby caballero [facility] 1.114 350.1.13.10 4.2.7.2.686 [id number] [id number] [facility] 2023-04-28 00:00:00 2023-04-28 00:00:00 Orders Only Doctor Unassigned, Lenox [facility] 1.0.114 350.1.13.10 4.2.7.2.686 [id number] [facility] 2023-04-21 00:00:00 2023-04-21 00:00:00 Pre Visit Outreach Mechelle Oh 1..114 350.1.13.10 4.2.7.2.686 [id number] [facility] 2023-03-31 00:00:00 2023-03-31 00:00:00 Refill Hina [facility] 1.114 350.1.13.10 4.2.7.2.686 [id number] 044 [id number] [facility] 2023-03-29 00:00:00 2023-03-29 00:00:00 Refill Hina Norton [facility] 1.84114 350.1.13.10 4.2.7.2.686 [id number] [id number] [facility] 2023-03-17 00:00:00 2023-03-17 00:00:00 Patient Secure Msg Doctor Unassigned, Lenox [facility] OFF[facility] BU[facility] 1.114 350.1.13.10 4.2.7.2.686 [id number] [id number] [facility] 2023-03-13 13:48:04 2023-03-13 23:59:00 Outpatient R HINA NORTON [facility] [id number] [facility] 2023-03-13 13:48:04 2023-03-13 23:59:00 Hospital Encounter Hina Norton [facility] 1.114 350.1.13.10 4.2.7.2.686 [id number] [facility] 2023-03-10 00:00:00 2023-03-10 00:00:00 Patient Secure Msg Doctor Unassigned, Lenox [facility] 1.84114 350.1.13.10 4.2.7.2.686 [id number] [id number] [facility] 2023-03-07 15:15:00 2023-03-07 16:12:55 Outpatient R HINA NORTON [facility] [id number] [facility] 2023-03-07 15:15:00 2023-03-07 15:30:00 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, 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 [facility] 1.84.114 350.1.13.10 4.2.7.2.686 [id number] [facility] 2023-03-07 14:30:00 2023-03-07 14:56:42 Office Visit Lou Nortonthia [facility] 1.2.840.114 350.1.13.10 4.2.7.2.686 [id number] [id number] [facility] 2023-03-07 00:00:00 2023-03-07 00:00:00 Orders Only Doctor Unassigned, Lenox [facility] 1.2.840.114 350.1.13.10 4.2.7.2.686 [id number] [facility] 2023-03-07 00:00:00 2023-03-07 00:00:00 Telephone Hina Norton [facility] 1..840.114 350.1.13.10 4.2.7.2.686 [id number] 044 [id number] [facility] 2023-03-06 14:00:00 2023-03-06 14:00:00 Outpatient ASHLEY JUNIOR [facility] [id number] [facility] 2023-01-31 08:20:00 2023-01-31 08:20:00 Outpatient PAZ WYNNE CHRISTINE [facility] [id number] [facility] 2023-01-30 17:20:00 2023-01-30 17:40:00 Urgent Care Chastity Toure Unknown, Attending [facility] 1..840.114 350.1.13.10 4.2.7.2.686 [id number] [facility] 2023-01-30 17:20:00 2023-01-30 17:20:00 Outpatient R CHASTITY TOURE [facility] [id number] [facility] 2022-12-04 14:00:00 2022-12-04 15:06:57 Outpatient R GABBY KISER [facility] [id number] [facility] 2022-12-04 14:00:00 2022-12-04 15:06:57 Office Visit Gabby Kiser [facility] 1.2.840.114 350.1.13.10 4.2.7.2.686 [id number] [facility] 2022-11-08 00:00:00 2022-11-08 00:00:00 Refill Gabby Kiser [facility] RENAE [facility] 1.2.840.114 350.1.13.10 4.2.7.2.686 [id number] [id number] [facility] 2022-10-30 00:00:00 2022-10-30 00:00:00 Patient Secure Msg Doctor Unassigned, [facility] 1.2.840.114 350.1.13.10 4.2.7.2.686 [id number] [facility] 2022-10-30 00:00:00 2022-10-30 00:00:00 Patient Secure Msg Doctor Unassigned, Lenox [facility] 1.2.840.114 350.1.13.10 4.2.7.2.686 [id number] [facility] 2022-10-30 00:00:00 2022-10-30 00:00:00 Patient Secure Msg Doctor Unassigned, Lenox [facility] 1.2.840.114 350.1.13.10 4.2.7.2.686 [id number] [facility] 2022-10-28 15:45:00 2022-10-28 16:00:00 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, Dieudonne Kiser [facility] 1.84.114 350.1.13.10 4.2.7.2.686 [id number] [facility] 2022-10-28 13:30:00 2022-10-28 14:10:38 Outpatient R GABBY KISER [facility] [id number] [facility] 2022-10-28 13:30:00 2022-10-28 14:10:38 Office Visit Margi [facility] 1.84.114 350.1.13.10 4.2.7.2.686 [id number] 044 [id number] [facility] 2022-10-12 00:00:00 2022-10-12 00:00:00 Refill Margi [facility] 1.84.114 350.1.13.10 4.2.7.2.686 [id number] [facility] 2022-09-25 22:31:00 2022-09-25 23:37:00 Emergency X JAYJAY KEITA [facility] [id number] [facility] 2022-09-25 22:31:00 2022-09-25 23:37:00 Emergency Jayjay Keita [facility] 1.84.114 350.1.13.10 4.2.7.2.686 [id number] [facility] 2022-09-25 00:00:00 2022-09-25 00:00:00 Orders Only Doctor Unassigned, Lenox [facility] 1..114 350.1.13.10 4.2.7.2.686 [id number] [facility] 2022-09-24 12:00:00 2022-09-24 13:18:39 Outpatient R MALIK BOWENS OGECHUKWU [facility] [id number] [facility] 2022-09-24 12:00:00 2022-09-24 13:18:39 Office Visit Malik Bowens [facility] N[facility] BUILDING 1.2.840.114 350.1.13.10 4.2.7.2.686 [id number] 044 [id number] [facility] 2022-09-13 00:00:00 2022-09-13 00:00:00 Refill Gabby Kiser [facility]ILD[facility] 1.2.840.114 350.1.13.10 4.2.7.2.686 [id number] [facility] 2022-09-13 00:00:00 2022-09-13 00:00:00 Refill Ann MarieGabby caballero [facility]ILD[facility] 1.2.840.114 350.1.13.10 4.2.7.2.686 [id number] 044 [id number] [facility] 2022-08-22 00:00:00 2022-08-22 00:00:00 Refill Gabby Kiser [facility] 1.2.840.114 350.1.13.10 4.2.7.2.686 [id number] [facility] 2022-07-02 14:30:00 2022-07-02 15:06:13 Outpatient R ANN MARIEGABBY Caballero [facility] [id number] [facility] 2022-07-02 14:30:00 2022-07-02 15:06:13 Office Visit Ann MarieGabby caballero [facility] 1.2.840.114 350.1.13.10 4.2.7.2.686 [id number] [facility] 2022-07-02 00:00:00 2022-07-02 00:00:00 Orders Only Doctor Unassigned, Lenox [facility] 1.2.840.114 350.1.13.10 4.2.7.2.686 [id number] [facility] 2022-07-02 00:00:00 2022-07-02 00:00:00 Telephone Ann MarieGabby caballero [facility]ILD[facility] 1.2.840.114 350.1.13.10 4.2.7.2.686 [id number] [facility] 2022-06-27 00:00:00 2022-06-27 00:00:00 Refill Ann Mariefederico Gabby [facility] OFF[facility] BUILD[facility] 1.2.840.114 350.1.13.10 4.2.7.2.686 [id number] [facility] 2022-04-11 00:00:00 2022-04-11 00:00:00 Refill LisaankitjaelMaria Zeb [facility] 1.2.840.114 350.1.13.10 4.2.7.2.686 [id number] [facility] 2022-03-24 00:00:00 2022-03-24 00:00:00 Refill Margi [facility] 1.2.840.114 350.1.13.10 4.2.7.2.686 [id number] [facility] 2022-03-19 13:30:00 2022-03-19 13:30:00 Outpatient VALENTE ZULETA [facility] [id number] [facility] 2022-02-27 19:00:00 2022-02-27 19:37:27 Outpatient KRISTA ECKERT [facility] [id number] [facility] 2022-02-27 19:00:00 2022-02-27 19:20:00 Urgent Care SudeepKrista Unknown, Attending [facility] 1..114 350.1.13.10 4.2.7.2.686 [id number] [facility] 2022-02-27 00:00:00 2022-02-27 00:00:00 Refill SudeepKrista [facility] 1.114 350.1.13.10 4.2.7.2.686 [id number] [facility] 2022-02-27 00:00:00 2022-02-27 00:00:00 Orders Only Doctor Unassigned, Lenox [facility] 1.114 350.1.13.10 4.2.7.2.686 [id number] [facility] 2022-02-12 10:30:00 2022-02-12 10:30:00 Outpatient R GABBY KISER [facility] [id number] [facility] 2022-02-03 14:40:00 2022-02-03 15:07:29 Outpatient R KRISTA SHEETS [facility] [id number] [facility] 2022-02-03 14:40:00 2022-02-03 15:00:00 Urgent Care SudeepKrista Unknown, Attending [facility] OFF[facility] BUILDING 1.114 350.1.13.10 4.2.7.2.686 [id number] [facility] 2022-01-31 00:00:00 2022-01-31 00:00:00 Gabby Morillo [facility] OFF[facility] BUILD[facility] 1.114 350.1.13.10 4.2.7.2.686 [id number] [facility] 2022-01-22 00:00:00 2022-01-22 00:00:00 Refill Ann MarieGabby caballero [facility] 1..840.114 350.1.13.10 4.2.7.2.686 [id number] [facility] 2022-01-19 11:40:00 2022-01-19 12:11:58 Outpatient R NEDA DELAROSA [facility] [id number] [facility] 2022-01-19 11:40:00 2022-01-19 12:00:00 Urgent Care Neda Delarosa Unknown, Attending [facility] OFF[facility] BUILD[facility] 1..840.114 350.1.13.10 4.2.7.2.686 [id number] [facility] 2022-01-17 20:00:00 2022-01-17 20:44:22 Outpatient R MARIA LUNA III [facility] [id number] [facility] 2022-01-17 20:00:00 2022-01-17 20:44:22 Urgent Care Maria Luna Unknown, Attending [facility] 1..840.114 350.1.13.10 4.2.7.2.686 [id number] [facility] 2022-01-09 08:30:00 2022-01-09 09:13:21 Outpatient R GABBY KISER [facility] [id number] [facility] 2022-01-09 08:30:00 2022-01-09 09:13:21 Office Visit Gabby Kiser [facility] 1..840.114 350.1.13.10 4.2.7.2.686 [id number] [facility] 2021-11-19 00:00:00 2021-11-19 00:00:00 Telephone Gabby Kiser [facility] 1.2.840.114 350.1.13.10 4.2.7.2.686 [id number] [facility] 2021-10-13 00:00:00 2021-10-13 00:00:00 [facility] 1..840.114 350.1.13.10 4.2.7.2.686 [id number] [facility] 2021-08-27 00:00:00 2021-08-27 00:00:00 Orders Only Doctor Unassigned, Lenox [facility] 1..840.114 350.1.13.10 4.2.7.2.686 [id number] [facility] 2021-08-24 10:30:00 2021-08-24 10:30:00 Outpatient GABBY HARRELL [facility] [id number] [facility] 2021-08-21 13:30:00 2021-08-21 13:30:00 Outpatient GABBY HARRELL [facility] [id number] [facility] 2021-08-21 13:30:00 2021-08-21 13:30:00 Outpatient GABBY HARRELL [facility] [id number] [facility] 2021-08-07 00:00:00 2021-08-07 00:00:00 Patient Secure Msg Doctor Unassigned, Lenox [facility] 1.840.114 350.1.13.10 4.2.7.2.686 [id number] [facility] 2021-07-10 14:30:00 2021-07-10 15:10:14 Outpatient GABBY HARRELL [facility] [id number] [facility] 2021-07-10 14:30:00 2021-07-10 15:10:14 Office Visit Ann Mariefederico Gabby [facility] OFF[facility] BUILD[facility] 1.2.840.114 350.1.13.10 4.2.7.2.686 [id number] [facility] 2021-05-04 00:00:00 2021-05-04 00:00:00 Orders Only Doctor Unassigned, Lenox [facility] 1.2.840.114 350.1.13.10 4.2.7.2.686 [id number] [facility] 2021-04-06 00:00:00 2021-04-06 00:00:00 Telephone Ashley Piña [facility] OFF[facility] BUILD[facility] 1.2.840.114 350.1.13.10 4.2.7.2.686 [id number] [facility] 2021-04-06 00:00:00 2021-04-06 00:00:00 Telephone Ashley Piña [facility] OFF[facility] BUILD[facility] 1.2.840.114 350.1.13.10 4.2.7.2.686 [id number] [id number] [facility] 2021-04-04 16:45:00 2021-04-04 17:00:00 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, 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 - Ashley Oneil [facility] OFF[facility] BUILD[facility] 1.2.840.114 350.1.13.10 4.2.7.2.686 [id number] [facility] 2021-04-04 16:45:00 2021-04-04 16:36:06 Outpatient R ASHLEY PIÑA [facility] [id number] [facility] 2021-03-22 00:00:00 2021-03-22 00:00:00 Telephone [facility] 1.2.840.114 350.1.13.10 4.2.7.2.686 [id number] [facility] 2021-03-19 09:00:00 2021-03-19 10:03:46 Office Visit Valente Tate [facility] 1.2.840.114 350.1.13.10 4.2.7.2.686 [id number] [facility] 2021-03-19 09:00:00 2021-03-19 10:03:46 Outpatient R VALENTE TATE [facility] [id number] [facility] 2021-03-19 09:00:00 2021-03-19 09:00:00 Outpatient R [facility] [id number] [facility] 2021-03-19 00:00:00 2021-03-19 00:00:00 Orders Only Doctor Unassigned, Lenox [facility] 1.2840.114 350.1.13.10 4.2.7.2.686 [id number] [facility] 2021-03-09 00:00:00 2021-03-09 00:00:00 Telephone Ashley Piña [facility] 1.2.840.114 350.1.13.10 4.2.7.2.686 [id number] [facility] 2021-03-01 10:00:00 2021-03-01 12:11:22 Office Visit Ashley Piña [facility] OFF[facility] BUILD[facility] 1.2.840.114 350.1.13.10 4.2.7.2.686 [id number] [facility] 2021-03-01 10:00:00 2021-03-01 12:11:22 Outpatient R ASHLEY PIÑA [facility] [id number] [facility] 2021-03-01 11:15:00 2021-03-01 11:30:00 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, Jose Nguyen [facility] 1..840.114 350.1.13.10 4.2.7.2.686 [id number] [facility] 2021-02-13 10:30:00 2021-02-13 10:30:00 Outpatient CHASTITY NOLAND [facility] [id number] [facility] 2021-02-13 00:00:00 2021-02-13 00:00:00 Orders Only Doctor Unassigned, Lenox [facility] 1..840.114 350.1.13.10 4.2.7.2.686 [id number] [facility] 2021-01-04 13:30:00 2021-01-04 13:30:00 Outpatient Joy TOURE CHASTITY [facility] [id number] [facility] 2021-01-02 15:30:00 2021-01-02 15:30:00 Outpatient Joy TOURE [facility] [id number] [facility] 2020-08-13 22:14:00 2020-08-13 23:45:00 Emergency Ira Olson [facility] 1..840.114 350.1.13.10 4.2.7.2.686 [id number] [facility] 2018-09-30 02:08:51 2018-09-30 03:40:00 Emergency Teresa Enriquez [facility] 1..840.114 350.1.13.10 4.2.7.2.686 [id number] 2018-09-30 02:08:51 2018-09-30 03:40:00 Emergency Mina Alexsandrazachary [facility] 1..840.114 350.1.13.10 4.2.7.2.686 [id number] [facility] Results Test Description Test Time Test Comments Results Resul t Comments Source XR CHEST 2 VW 2023-11-19 6 20:43:13 EXAM: XR CHEST 2 VW HISTORY: 23 years-old Female; Provided indication: cough x 6 days with lowgrade fever . TECHNIQUE: Frontal and lateral views COMPARISON: Chest radiograph on 10/15/2023, 09/30/2018 FINDINGS: The lungs are well-expanded. No focal consolidation or pleural abnormalityis visualized. The cardiomediastinal silhouette is normal in size. No acute osseous abnormality is present. [facility] [id number] 18:05:45* Test Item Value Reference Range Interpretation Comme nts POCT Molecular Strep (test c ode = 96945-4) Negative Negative Lab Interpretation (test cod e = [id number]) Normal [facility] [id number] 20:14:21EXAM: XR FINGERS 2 VW RIGHT HISTORY: 23 years old Female with thumb pain after fall COMPARISON: None FINDINGS: Imaging of the right first digit demonstrates a well- corticated punctateossific structure lying anterior to the DIP joint, likely representing anaccessory ossicle. No acute fracture or dislocation is seen. The jointspaces are maintained. Mild soft tissue swelling adjacent to the thumbmeta carpal head.[facility]-Nuclear Antibody-Pathologist [id number] 19:40:30ANA - Pathologist InterpretationANA HEp-2 IIFA Pathologist Interpretation Report Patient Name: Susana Antoine ? : 2000 ??Antinuclear Antibody (NAZARIO) Test (Anti-Cell Antibodies Test) Indirect Immunofluorescence Assay on HEp-2 Cells Screening titer: 1:80 (adults, > 18 years old), 1:40(pediatrics, <= 18 years old)?Result: The antinuclear antibody (NAZARIO) screen is negative on interpretation. Remarks:This patient has a negative antinuclear antibody (NAZARIO) screening test. This suggests that the patient likely does not have a systemic autoimmune rheumatic disease that is strongly as sociated with a positive NAZARIO, such as systemic lupus erythematosus (NAZARIO positive in ~95-100%), systemic sclerosis (NAZARIO positive in ~60-80%), or the following disorders in which NAZARIO positivity is partof the diagnostic criteria: drug- induced lupus, autoimmune hepatitis, or mixed connective tissue disease. However, the NAZARIO may be negative in rare cases of systemic lupus erythematosus and systemic sclerosis. The NAZARIO may also be negative in ~20% of patients presenting with autoimmune hepatitis. Additionally, NAZARIO positivity is less sensitive in the diagnosis of Sjogren's syndrome (~40-70%) and derm atomyositis/polymyositis (~30-80%). The NAZARIO also has limited diagnostic utility in vasculitis, as the NAZARIO may be negative in this autoimmune condition. A positive NAZARIO test is not needed for the diagnosis of rheumatoid arthritis, multiple sclerosis, thyroid disease, discoid lupus, or fibromyalgia due to highly variable and/or low NAZARIO positivity rates in these conditions. ? Therefore, a diagnosis cannot be based exclusively on NAZARIO detection and/or pattern and thus should be made via the integration of patient history, physical exam findings, and other diagnostic tests as clinically indicated. References: - Andrei A, Charisma R, Bharath J, Dustin DH, Rolly NORRIS. Guidelines for clinical useof the antinuclear antibody test and tests for specific autoantibodies to nuclear antigens. [employer]. Arch Pathol Lab Med. 2000;124(1):71-81. doi:10.5858/9181-804-2291-GFCUCARLOS-Dale CL, Harsh D, Leonidas DN, et al. Diagnosis and Management of Autoimmune Hepatitis in Adults and Children: 2019 Practice Guidance and Guidelines From the [employer] the [employer] Liver Diseases. Hepatology. 2020;72(2):671-722. doi:10.1002/hep.15536- Drake C, Rosendo EC, Mila M. Rational use of blood tests in the evaluation of rheumatic diseases. Mo Med. 2012;109(1):59-63. Divine Talbot MD ?10/17/2023 ?2:40 PM 10/17/2023 2:40 PM [facility] Antibody [id number] 21:54:57* Test Item Value Reference Range Interpretation Comme nts NAZARIO (test code = 1152601863) Negative Negative ISAÍAS (test code = ISAÍAS) Negative: ?No Anti-Nuclear Antibodies detected by IFA. Positive: ?NAZARIO IFA screen performed with a 1:80 dilution in adults and a 1:40 dilution in pediatrics. ?A titer is performed and reported separately when the NAZARIO is "Positive" or when "Cytoplasmic staining is observed." Lab Interpretation (test code = 44768-1) Normal [facility]Ins[facility], [id number] 19:17:01* Test Item Value Reference Range Interpretation Comme nts Insulin (test code = 1533308965) 5.4 1.9-23.0 Lab Interpretation (test cod e = 57721-8) Normal [facility] NortheastRheumatoid [id number] 16:18:57* Test Item Value Reference Range Interpretation Comme nts RF (test code = 6558489472) See_Comment [Automated [employer] ge] The system which generated this result transmitted reference range: <20 IU/mL. The reference range was not used to interpret this result as normal/abnormal. Lab Interpretation (test code = 60915-7) Normal [facility] CHEST 2 [id number] 23:48:36EXAM: XR CHEST 2 VW COMPARISON: Chest x-ray dated 09/30/2018 HISTORY: chest discomfort FINDINGS: Lungs: A subcentimeter calcified opacity in the left upper lung field seenon anterior projection only which may be a granuloma or bone island. No focal consolidation, pleural effusion, or pneumothorax. Heart/Mediastinum: The cardiomediastinal silhouette is unremarkable. Bones and soft tissues: No acute osseous findings are detected.[facility]Vitamin B12, [id number] 23:20:14* Test Item Value Reference Range Interpretation Comme nts VIT B12 (test code = 9816090345) 375 pg/mL 240-930 ISAÍAS (test code = ISAÍAS) Biotin has been reported to cause a positive bias, interpret results relative to patient's use of biotin. Lab Interpretation (test code = 73215-7) [facility] 23:20:14* Test Item Value Reference Range Interpretation Comme nts FOLATE SER (test code = 0308353416) 4.1 ng/mL 3.0-20.0 Lab Interpretation (test cod e = 83986-7) [facility]Hcv [id number] 23:01:45* Test Item Value Reference Range Interpretation Comme [facility] HCV Ab (test code = 04799-9) Negative HCV Semi-Quantitative (test code = 38824-1) 0.00 [facility] D, [id number] 21:40:28* Test Item Value Reference Range Interpretation Comme [facility] VIT D 25OH (test code = 46149-3) 31 ng/mL 25-80 ISAÍAS (test code = ISAÍAS) Deficiency: <20 ng/mLInsufficiency : 20-24 ng/mLOptimal: 25-80 ng/mL Lab Interpretation (test code = 14360-0) [facility] 1/2 Ag-Ab with [id number] 21:15:23* Test Item Value Reference Range Interpretation Comme [facility] HIV Semi-quantitative (test code = 50714-2) 0.12 Negative ISAÍAS (test code = ISAÍAS) Non-reactive for HIV-1 antigen and HIV-1/HIV-2 antibodies. ?No laboratory evidence of HIV infection. ?Repeat in 2-4 weeks if acute HIV infection is suspected. [facility]Glycos[facility] Hemoglobin (A1C)2023-10-15 21:14:12* Test Item Value Reference Range Interpretation Comme [facility] HGB A1C (test code = 4548-4) 5.2 % 4.0-5.7 ISAÍAS (test code = ISAÍAS) Reference RangesNormal: <5.7%Prediabetes: 5.7 - 6.4%Diabetes: > 6.5% Lab Interpretation (test code = 69450-2) [facility] NortheastThyroid Stimulating [id number] 21:06:00 * Test Item Value Reference Range Interpretation Comme [facility] TSH (test code = 9760624748) 1.79 0.45-4.70 Lab Interpretation (test cod e = 12301-9) [facility] NortheastLipid [facility] (58652)(Total Cholesterol, Triglycerides, HDL)2023-10-15 20:38:17* Test Item Value Reference Range Interpretation Comme [facility] CHOL (test code = 0757425402) 169 mg/dL 120-200 HDL (test code = 1109417339) 69 mg/dL >=50 HDLC RATIO (test code = 6982290865) 2.4 <=4.5 TRIG (test code = 5557578618) 54 mg/dL 30-170 LDL CHOL (test code = 87014-8) 89 mg/dL <=160 VLDL (test code = 3606589765) 11 mg/dL 5-60 Lab Interpretation (test cod e = 13068-2) [facility] NortheastMagnesium2024-08-28 20:38:12* Test Item Value Reference Range Interpretation Comme nts MAGNESIUM (test code = 4276053533) 2.0 mg/dL 1.7-2.4 Lab Interpretation (test cod e = 92103-4) [facility] NortheastComp. Metabolic Panel (32937)2023-10-15 20:37:52* Test Item Value Reference Range Interpretation Comme nts NA (test code = 0744515086) 137 mmol/L 135-145 K (test code = 8182560171) 4.4 mmol/L 3.5-5.0 CL (test code = 0413309048) 98 mmol/L 98-108 CO2 TOTAL (test code = 4140906640) 30 mmol/L 23-31 AGAP (test code = 5221681330) 9 2-16 BUN (test code = 2776711742) 9 mg/dL 7-23 GLUCOSE (test code = 3902410077) 93 mg/dL 70-110 CREATININE (test code = 2160-0) 0.84 mg/dL 0.50-1.04 TOTAL BILI (test code = 9042887537) 0.9 mg/dL 0.1-1.1 CALCIUM (test code = 8874047859) 9.8 mg/dL 8.6-10.6 T PROTEIN (test code = 1579607708) 7.8 g/dL 6.3-8.2 ALBUMIN (test code = 7700020168) 4.6 g/dL 3.5-5.0 ALK PHOS (test code = 1906042496) 73 U/L 34-122 ALTv (test code = 1742-6) 39 U/L 5-35 H AST(SGOT) (test code = 2156688457) 28 U/L 13-40 eGFR (test code = 99266-7) 101.5 mL/min/1.73m2 CKD-EPI eGFR (2020). Assuming creatinine has been stable day-to-day for at least three months, the eGFR indicates Category G1 (>= 90 mL/min/1.73 m2) Lab Interpretation (test code = 89623-9) [facility]XR SACRUM AND [id number] 20:25:39XR LUMBAR SPINE 4 VW, XR SACRUM AND COCCYX HISTORY: chronic b/l low back pain w/ sciatica TECHNIQUE: AP and lateral views of the lumbar spine, sacrum and coccyx wereobtained. Flexion/Extension views of the lumbar spine were obtained. COMPARISON: None.[facility] LUMBAR SPINE 4 VW 2023-10-15 20:25:39XR LUMBAR SPINE 4 VW, XR SACRUM AND COCCYX HISTORY: chronic b/l low back pain w/ sciatica TECHNIQUE: AP and lateral views of the lumbar spine, sacrum and coccyx wereobtained. Flexion/Extension views of the lumbar spine were obtained. COMPARISON: None.[facility] Sedimentation [id number] 20:17:02* Test Item Value Reference Range Interpretation Comme nts ESR (test code = 40459-2) 5 0-20 Lab Interpretation (test cod e = 99532-2) [facility] NortheastCbc with [id number] 19:26:59* Test Item Value Reference Range Interpretation Comme nts WBC (test code = 6690-2) 5.87 4.30-11.10 RBC (test code = 789-8) 4.24 3.93-5.25 HGB (test code = 718-7) 12.6 g/dL 11.6-15.0 HCT (test code = 4544-3) 38.9 % 35.7-45.2 MCV (test code = 787-2) 91.7 fL 80.6-95.5 MCH (test code = 785-6) 29.7 pg 25.9-32.8 MCHC (test code = 786-4) 32.4 g/dL 31.6-35.1 RDW-SD (test code = 15825-3) 41.8 fL 39.0-49.9 RDW-CV (test code = 788-0) 12.6 % 12.0-15.5 PLT (test code = 777-3) 377 166-358 H MPV (test code = 82839-8) 10.3 fL 9.5-12.9 NRBC/100 WBC (test code = 8100308588) 0.0 0.0-10.0 NRBC x10^3 (test code = 3304561806) See_Comment [Automated messa ge] The system which generated this result transmitted reference range: 10*3/?L. The reference range was not used to interpret this result as normal/abnormal. GRAN MAT (NEUT) % (test code = 770-8) 58.1 % IMM GRAN % (test code = 0548907184) 0.20 % LYMPH % (test code = 736-9) 30.3 % MONO % (test code = 5905-5) 6.8 % EOS % (test code = 713-8) 3.4 % BASO % (test code = 706-2) 1.2 % GRAN MAT x10^3(ANC) (test code = 0969068455) 3.41 10*3/uL 1.88-7.09 IMM GRAN x10^3 (test code = 7710383407) 0.00-0.06 LYMPH x10^3 (test code = 731-0) 1.78 10*3/uL 1.32-3.29 MONO x10^3 (test code = 742-7) 0.40 10*3/uL 0.33-0.92 EOS x10^3 (test code = 711-2) 0.20 10*3/uL 0.03-0.39 BASO x10^3 (test code = 704-7) 0.07 10*3/uL 0.01-0.07 Lab Interpretation (test code = 55953-9) [id number] 16:41:00* Test Item Value Reference Range Interpretation Comme nts POCT PREG (test code = 1605) Negative On board controls acceptable with C Line (test code = 3574) Yes POCT PREG LOT # (test code = 3575) POCT PREG TEST DATE ( test code = 3576) Lab Interpretation (test cod e = 86358-6) [facility] [id number] 16:37:00* Test Item Value Reference Range Interpretation Comme nts POCT PREG (test code = 1605) Negative On board controls acceptable with C Line (test code = 3574) Yes POCT PREG LOT # (test code = 3575) POCT PREG TEST DATE ( test code = 3576) [facility] Urinalysis W Specific [id number] 15:55:00* Test Item Value Reference Range Interpretation Comme nts POCT U SP GRAV (test code = 5) 1.020 mg/dl 1.005-1.025 POCT PH U (test code = 3254) 6 mg/dl 5-8 POCT U LEUK EST (test code = 3263) + Negative - Negative POCT U NIT (test code = 3262) neg Negative - Negati ve POCT U PROT (test code = 3259) trace Negative - Negative POCT U GLU (test code = 3256) normal Negative - Negati ve POCT U KETONE (test code = 3258) neg Negative - Negative POCT U UROBILI (test code = 3260) 1 mg/dl 0.2-1 POCT U BILI (test code = 3261) neg Negative - Negative POCT U BLD (test code = 3257) 50 Negative - Negati ve POCT U COLOR (test code = 3266) dark yellow POCT U APPEAR (test code = 3267) clear [facility] Urinalysis W Specific [id number] 15:55:00* Test Item Value Reference Range Interpretation Comme nts POCT U SP GRAV (test code = 5) 1.020 mg/dl 1.005-1.025 POCT PH U (test code = 3254) 6 mg/dl 5-8 POCT U LEUK EST (test code = 3263) + Negative - Negative POCT U NIT (test code = 3262) neg Negative - Negati ve POCT U PROT (test code = 3259) trace Negative - Negative POCT U GLU (test code = 3256) normal Negative - Negati ve POCT U KETONE (test code = 3258) neg Negative - Negative POCT U UROBILI (test code = 3260) 1 mg/dl 0.2-1 POCT U BILI (test code = 3261) neg Negative - Negative POCT U BLD (test code = 3257) 50 Negative - Negati ve POCT U COLOR (test code = 3266) dark yellow POCT U APPEAR (test code = 3267) clear [facility] ABD[facility]EN [id number] 21:07:21HISTORY: Upper Abdominal pain. TECHNIQUE: Liver, pancreas, spleen and gallbladder were evaluated inmultiple planes with the patient in different positions. Color imaging isutilized. FINDINGS: Gallbladder is contracted. No gallstones. No biliary sludge orcrystals seen. No free fluid detected in pericholecystic space. Commonhepatic duct is 2.6 mm. Hepatic and portal venous system appeared patent. Spleen is 8.8 x 4.2 cm and liver is approximately 12 cm in length. No focallesions detected in the liver or in the spleen. CONCLUSION: Contracted gallbladder, likely secondary to not nothing bymouth status. No gallstones or any acute findings detected.[facility] Molecular Flu 2023-01-31 00:08:44* Test Item Value Reference Range Interpretation Comme nts POCT Molecular FluA (test co de = 57688-0) Negative Negative POCT Molecular FluB (test co de = 59326-2) Negative Negative Lab Interpretation (test cod e = 57718-8) Normal [facility] MOLECULAR [id number] 23:54:16* Test Item Value Reference Range Interpretation Comme nts POCT Molecular Strep (test c ode = 42242-0) Negative Negative Lab Interpretation (test cod e = 35575-2) Normal [facility] SARS-COV-2 ANTIGEN (BINAX NOW)2022-12-04 20:06:00* Test Item Value Reference Range Interpretation Comme nts POCT SARS-COV-2 ANTIGEN (arturo t code = 25108-3) Not Detected Not Detected On board controls acceptable with C Line (test code = 3574) Yes [facility] SARS-COV-2 ANTIGEN (BINAX NOW)2022-12-04 20:06:00* Test Item Value Reference Range Interpretation Comme nts POCT SARS-COV-2 ANTIGEN (arturo t code = 37430-7) Not Detected Not Detected On board controls acceptable with C Line (test code = 3574) Yes [facility] MOLECULAR [id number] 20:04:09* Test Item Value Reference Range Interpretation Comme nts POCT Molecular FluA (test co de = 55433-0) Negative Negative POCT Molecular FluB (test co de = 10278-4) Negative Negative Lab Interpretation (test cod e = 09208-7) Normal [facility] MOLECULAR [id number] 20:04:09* Test Item Value Reference Range Interpretation Comme nts POCT Molecular FluA (test co de = 15203-2) Negative Negative POCT Molecular FluB (test co de = 37075-1) Negative Negative Lab Interpretation (test cod e = 01549-7) Normal [facility] MOLECULAR [id number] 17:51:38* Test Item Value Reference Range Interpretation Comme nts POCT Molecular Strep (test c ode = 62795-0) Negative Negative Lab Interpretation (test cod e = 92316-4) Normal [facility] URINALYSIS W SPECIFIC [id number] 02:47:00* Test Item Value Reference Range Interpretation Comme nts POCT U SP GRAV (test code = 3255) 1.020 mg/dl 1.005-1.025 A POCT PH U (test code = 3254) 5 mg/dl 5-8 POCT U LEUK EST (test code = 3263) trace Negative - Negative POCT U NIT (test code = 3262) neg Negative - Negati ve POCT U PROT (test code = 3259) trace Negative - Negative POCT U GLU (test code = 3256) neg Negative - Negati ve POCT U KETONE (test code = 3258) neg Negative - Negative POCT U UROBILI (test code = 3260) neg 0.2-1 POCT U BILI (test code = 3261) neg Negative - Negative POCT U BLD (test code = 3257) about 50 Negative - Negati ve POCT U COLOR (test code = 3266) dark yellow POCT U APPEAR (test code = 3267) clear Lab Interpretation (test cod e = 64216-9) [facility]
[2024-02-03] MEDS ORDERED: LIDOCAINE 1% MPF 5 ML VIAL ONE (13:05)
--- NOTE | 2024-02-03 13:58 | EDPHYS ---
Physician Documentation [facility] Name: Susana Antoine Age: 23 yrs Sex: Female : 2000 Arrival Date: 02/03/2024 Time: 12:26 Bed 12 Private MD: ED Physician Yassine Pagan HPI: 02/02 13:25 This 23 yrs old Female presents to ER via Ambulatory with complaints of Dog Bite. rn 13:25 The patient was bitten on the right hand. Onset: The symptoms/episode began/occurred rn just prior to arrival. Severity of symptoms: At their worst the symptoms were mild, in the emergency department the symptoms are unchanged. The patient has not experienced similar symptoms in the past. Patient reports accidental dog bite to the right hand. Has small laceration to the palm of left hand. No foreign body. Dog belongs to significant other.. Historical: - Allergies: 12:48 No Known Allergies; tm6 - PMHx: 12:48 Depressive disorder; tm6 - PSHx: 12:48 Tonsillectomy; Adenoid excision; ear tubes; pellet removed from head; tm6 - Immunization history:: Flu vaccine is up to date. - Infectious Disease History:: Denies. - Social history:: Smoking status: Patient denies any tobacco usage or history of. - Family history:: not pertinent. - Hospitalizations: : No recent hospitalization is reported. ROS: 13:25 Constitutional: Negative for fever, chills, and weight loss, MS/Extremity: Positive for rn dog bite and laceration to the palm of the right hand Exam: 13:25 Constitutional: This is a well developed, well nourished patient who is awake, alert, rn and in no acute distress. MS/ Extremity: Pulses equal, no cyanosis. Neurovascular intact. Full, normal range of motion. Equal circumference. 3 cm superficial laceration to the palm of the right hand, no foreign body, no active bleeding. Vital Signs: 12:47 Weight 65.77 kg; Height 5 ft. 2 in. ; tm6 12:55 BP 108 / 76; Pulse 111; Resp 18; Temp 99.5(O); Pulse Ox 99% on R/A; MAP 86 mmHg; Pain tm6 1/10; 12:47 Body Mass Index 26.52 (65.77 kg, 157.48 cm) tm6 12:55 Pain Scale: Adult tm6 Laceration: 13:57 Wound Repair of 3cm ( 1.2in ) subcutaneous laceration to palm of right hand. Distal rn neuro/vascular/tendon intact. Anesthesia: Wound infiltrated with 2 mls of 1% lidocaine. Wound prep: Extensive cleansing by nurse, Wound explored extensively. Skin closed with 3 4-0 Prolene using interrupted sutures and sterile technique. Patient tolerated well. MDM: 12:29 Medical Screening Exam initiated rn 13:57 Differential diagnosis: superficial laceration. Data reviewed: vital signs, nurses rn notes, and as a result, I will discharge patient. Counseling: I had a detailed discussion with the patient and/or guardian regarding the historical points, exam findings, and any diagnostic results supporting the discharge/admit diagnosis, the need for outpatient follow up, to return to the emergency department if symptoms worsen or persist or if there are any questions or concerns that arise at home. Response to treatment: the patient's symptoms have markedly improved after treatment, and as a result, I will discharge patient. Special discussion: I discussed with the patient/guardian in detail that at this point there is no indication for admission to the hospital. It is understood, however, that if the symptoms persist or worsen the patient needs to return immediately for re-evaluation. 02/02 12:42 Order name: Wound Care; Complete Time: 13:03 rn 02/02 12:42 Order name: Suture Tray at Bedside; Complete Time: 13:03 rn Administered Medications: 13:30 Drug: Lidocaine Infiltration (1 %) 1 vials 5 ml Infiltration once; to bedside {Note: ss administered by Dr. 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 MS/ Extremity: Pulses equal, no cyanosis. Neurovascular intact. Full, normal range of motion. Equal circumference. 2 cm superficial laceration to the palm of the right hand, no foreign body, no active bleeding. rn
--- NOTE | 2024-02-03 13:58 | ER ---
Nurse's Notes [facility] Name: Susana Antoine Age: 23 yrs Sex: Female : 2000 Arrival Date: 02/03/2024 Time: 12:26 Bed 12 Private MD: Diagnosis: Bitten by dog;Laceration without foreign body of right hand, initial encounter Presentation: 02/02 12:47 Chief complaint: Patient states: dog bite to right hand. Coronavirus screen: Client tm6 denies travel out of the [place] in the last 14 days. Ebola Screen: Patient negative for fever greater than or equal to 101.5 degrees Fahrenheit, and additional compatible Ebola Virus Disease symptoms Patient denies exposure to infectious person. Patient denies travel to an Ebola-affected area in the 21 days before illness onset. No symptoms or risks identified at this time. Initial Sepsis Screen: Does the patient meet any 2 criteria?. Risk Assessment: Do you want to hurt yourself or someone else? Patient reports no desire to harm self or others. Onset of symptoms was February 03, 2024. 12:47 Method Of Arrival: Ambulatory tm6 12:47 Acuity: ANGEL 4 tm6 Triage Assessment: 12:48 Bite description: bite sustained to right hand is from animal, by a dog, animal tm6 information:. General: Appears in no apparent distress. Behavior is calm, cooperative. Pain: Complains of pain in right hand Pain currently is 2 out of 10 on a pain scale. Pain began today. EENT: No signs and/or symptoms were reported regarding the EENT system. Neuro: Level of Consciousness is awake, alert, obeys commands, Oriented to person, place, time, situation. Cardiovascular: Patient's skin is warm and dry. Respiratory: Airway is patent Respiratory effort is even, unlabored, Respiratory pattern is regular, symmetrical. GI: No signs and/or symptoms were reported involving the gastrointestinal system. Abdomen is flat, non-distended. : No signs and/or symptoms were reported regarding the genitourinary system. Derm: Reports dog bite to right hand. Musculoskeletal: No signs and/or symptoms reported regarding the musculoskeletal system. Historical: - Allergies: 12:48 No Known Allergies; tm6 - PMHx: 12:48 Depressive disorder; tm6 - PSHx: 12:48 Tonsillectomy; Adenoid excision; ear tubes; pellet removed from head; tm6 - Immunization history:: Flu vaccine is up to date. - Infectious Disease History:: Denies. - Social history:: Smoking status: Patient denies any tobacco usage or history of. - Family history:: not pertinent. - Hospitalizations: : No recent hospitalization is reported. Screenin:19 Abuse screen: Denies threats or abuse. Denies injuries from another. Nutritional ss screening: No deficits noted. Tuberculosis screening: Never had TB. Assessment: 13:02 Reassessment: Spoke with [employer] dispatcher, Renita who states she will notify an ss officer of incident now. 13:19 General: Appears in no apparent distress. comfortable, Behavior is calm, cooperative, ss Denies fever, feeling ill, fatigue, chills. Pain: Complains of pain in palm of right hand. Neuro: Level of Consciousness is awake, alert, obeys commands. Cardiovascular: Pulses are palpable in right radial artery and left radial artery. Respiratory: Airway is patent Respiratory effort is even, unlabored, Respiratory pattern is regular, symmetrical. EENT:. Derm: Skin is intact, is healthy with good turgor, Skin is pink, warm \T\ dry. normal. Injury Description: Puncture sustained to palm of right hand is superficial, was sustained 30-60 minutes ago. Vital Signs: 12:47 Weight 65.77 kg; Height 5 ft. 2 in. ; tm6 12:55 BP 108 / 76; Pulse 111; Resp 18; Temp 99.5(O); Pulse Ox 99% on R/A; MAP 86 mmHg; Pain tm6 110; 12:47 Body Mass Index 26.52 (65.77 kg, 157.48 cm) tm6 12:55 Pain Scale: Adult tm6 ED Course: 12:29 Patient arrived in ED. sj2 12:29 Yassine Pagan MD is Attending Physician. rn 12:48 Triage completed. tm6 12:48 Arm band placed on left wrist. tm6 13:03 Yuliana Alvarado, NORA is Primary Nurse. ss 13:19 Patient has correct armband on for positive identification. ss 14:04 Assist provider with laceration repair on palm of right hand that was 2.5 cm. or less ss using Steri-strips. Set up tray. Performed by Yassine Pagan MD Dressed with Neosporin, non adherent and kerlix Patient tolerated well. Patient did not have IV access during this emergency room visit. Administered Medications: 13:30 Drug: Lidocaine Infiltration (1 %) 1 vials 5 ml Infiltration once; to bedside {Note: ss administered by Dr. Pagan and med student.} Volume: 5 ml; Route: Infiltration; Outcome: 13:58 Discharge ordered by . nora 14:04 Discharged to home ambulatory, with family, ss 14:04 Condition: good 14:04 Discharge instructions given to patient, family, Instructed on discharge instructions, follow up and referral plans. medication usage, Demonstrated understanding of instructions, follow-up care, medications, Prescriptions given X 1, 14:09 Patient left the ED. ss Signatures: Yassine Pagan MD MD rn Blanchard, Shelby, RN RN ss Masterson, Tawney, RN RN tm6 Ervin Myers sj2 Corrections: (The following items were deleted from the chart) 12:49 12:48 PMHx: None; tm6 tm6 12:49 12:48 PSHx: None; tm6 tm6
[2024-02-03 14:35] VITALS: BP 108/76; TEMP 99.5; O2SAT 99
== END 2024-02-03 14:09 | disposition home or self-care (01) ==
LOC: ER 12:26
DX: S61.411A Laceration without foreign body of right hand, initial encounter (principal); W54.0XXA Bitten by dog, initial encounter
CPT/HCPCS: 99283; 12042; J2003